=== PATIENT | female | born 1945 | race Caucasian/White ===

== ENCOUNTER 2020-02-01 11:27 | Outpatient (CLI) | payer MEDICARE, SELFPAY ==
[2020-02-01 11:42] LABS: Basophils Absolute Auto 0.04 K/mm3 (0.00-0.10); Basophils Percent Auto 0.8 % (0.0-1.0); Eosinophils Absolute Auto 0.21 K/mm3 (0.02-0.50); Eosinophils Percent Auto 4.2 % (1.0-6.0); Hematocrit 40.2 % (35.0-42.0); Hemoglobin 13.1 g/dL (11.7-13.8); Immature Granulocyte Absolute 0.02 K/mm3 (0.00-0.00); Immature Granulocyte Percent A 0.4 % (0.0-0.0); Lymphocytes Absolute Auto 1.35 K/mm3 (1.10-4.50); Lymphocytes Percent Auto 26.8 % (18.0-42.0); Mean Corpuscular HGB Conc 32.6 g/dL (32.0-36.0); Mean Corpuscular Hemoglobin 30.2 pg (27.0-31.0); Mean Corpuscular Volume 92.6 fL (78.0-102.0); Mean Platelet Volume 9.4 fl (9.2-11.8); Monocytes Absolute Auto 0.47 K/mm3 (0.10-0.90); Monocytes Percent Auto 9.3 % (2.0-11.0); Neutrophils Percent Auto 58.5 % (50.0-70.0); Platelet Count Result 236 K/mm3 (150-420); Red Blood Count 4.34 M/mm3 (4.20-5.40); Red Cell Distribution Width 12.7 % (11.6-14.4)
[2020-02-01 12:39] LABS: Alanine Aminotransferase 20 U/L (14-59); Albumin Level 3.7 g/dL (3.4-5.0); Alkaline Phosphatase 73 U/L (46-116); Anion Gap 13.2 mmol/L (7-16); Aspartate Amino Transferase 15 U/L (15-37); Bilirubin,Total 0.4 mg/dL (0.00-1.00); Blood Urea Nitrogen 23 mg/dL (7-18); Calcium 9.1 mg/dL (8.5-10.1); Carbon Dioxide 29 mmol/L (21-32); Chloride 106 mmol/L (98-108); Estimated Glomerular Filt Rate 53; Free T4 Free Thyroxine 0.72 ng/dL (0.76-1.46); Glucose 89 mg/dL (70-99); Osmolality Calculated 300 mOsm/kg (285-295); Potassium 4.2 mmol/L (3.5-5.1); Sodium 144 mmol/L (136-145); Total Protein 6.5 g/dL (6.4-8.2)
== END 2020-02-01 11:28 | disposition home or self-care (01) ==
LOC: CHSLAB 11:30
DX: E05.90 Thyrotoxicosis, unspecified without thyrotoxic crisis or storm (principal); E05.00 Thyrotoxicosis with diffuse goiter without thyrotoxic crisis or storm
CPT/HCPCS: 36415; 80053; 84439; 84443; 85025

== ENCOUNTER 2020-03-15 08:37 | Outpatient (CLI) | payer MEDICARE, SELFPAY ==
[2020-03-15 09:56] LABS: Cholesterol 258 mg/dL (0-200); Folic Acid 16.5 ng/mL (8.6->20); HDL Direct 66 mg/dL (40-60); LDL Cholesterol Calculated 183 mg/dL (<130); Magnesium 2.3 mg/dL (1.8-2.4); Triglycerides 44 mg/dL (0-150); Vitamin B12 681 pg/mL (193-986)
[2020-03-19 19:08] LABS: Vitamin D 25 Hydroxy 23 ng/mL (30-100)
== END 2020-03-15 08:38 | disposition home or self-care (01) ==
LOC: CHSLAB 08:39
PROVIDERS: PCP Family Medicine; Visit Provider Family Medicine
DX: R20.2 Paresthesia of skin (principal); E78.00 Pure hypercholesterolemia, unspecified; E55.9 Vitamin D deficiency, unspecified
CPT/HCPCS: 36415; 80061; 82306; 82607; 82746; 83735

== ENCOUNTER 2020-05-17 11:24 | Emergency (ER) | payer MEDICARE, BC, SELFPAY ==
[2020-05-17 11:45] VITALS: BP 144/89; PULSE 89; RESP 19; TEMP 36.6; O2SAT 96
--- NOTE | 2020-05-17 11:45 | ED.FALL ---
HPI - Fall General Chief Complaint: Dental/Oral Stated Complaint: Fell hit face on ground Source: patient Mode of arrival: ambulatory Limitations: no limitations History of Present Illness HPI Narrative: 75 y.o. stumbled on a sidewalk just prior to arrival in ED. She fell forward hitting her mouth and the right knee. She c/o a chipped tooth and being unable to close her mouth. She's able to walk without pain. She denies dizziness or lightheadedness. Denies headache, chest pain, neck, wrist, elbow, shoulder, hip pain. Related Data Home Medications Medication Instructions Recorded Confirmed No Home Medications 05/17/20 05/17/20 Allergies Allergy/AdvReac Type Severity Reaction Status Date / Time No Known Drug Allergies Allergy Unknown Verified 02/16/17 07:10 Review of Systems ENT: Denies epistaxis Cardiovascular: Cardiovascular: Denies chest pain Respiratory: Respiratory: Denies dyspnea Gastrointestinal: Gastrointestinal: Denies nausea and Denies vomiting Musculoskeletal: Musculoskeletal: Reports no additional musculoskeletal complaints Integumentary/Breasts: Skin/Breast: Reports system reviewed and no additional complaints, except as docu Neurologic: Denies vertigo, Denies dizziness and Denies syncope [facility] Past Medical History Medical History (Updated 05/17/20 @ 12:08 by Hernan Rene MD) Hypothyroidism Kidney malignancy 2016 dx. Kidney mass excised. No other tx. Sees oncology yearly. Family History Family History (Updated 09/19/13 @ 12:52 by DOCTOR UNKNOWN) Other Cerebrovascular accident Family history of anemia Family history of atrial fibrillation Family history of cardiovascular disease Family history of cataracts Family history of congestive heart failure Family history of coronary artery disease Family history of glaucoma Family history of hearing loss Family history of kidney disease Family history of malignant neoplasm of male breast Family history of osteoporosis Family history of seizure disorder Social History Social History Smoking status: Never smoker Alcohol intake: current Exam Const: General: alert Orientation/consciousness: patient oriented x3 Other: holding tissue to mouth, walked in. NAD. HENMT: Head: no hematomas and no lacerations Nose image: 1. 2. 3. area of superficial laceration. Wound edges do not seperate. Face and sinus: normal facial exam and no sinus tenderness Mouth: No lip normal Teeth and gingiva: abnormal dentition (R maxillary frontal incisor is shifted anterior,L incisor chipped) Other: Superficial lac of right lower external and right upper bucchal surfaces. Edges do not seperate. Minor right lip swelling. able to occlude teeth, the left max. incisor appears tilted anteriorly. The incisors are not loose. Eyes: Pupils: Equal, round and reactive pupils present Neck: Neck: normal visual inspection Other: No C spine tenderness Chest: Chest palpation & inspection: normal inspection of the chest Resp: Effort & Inspection: normal respiratory effort Cardio: Rate: regular rate Rhythm: regular rhythm Heart sounds: no murmurs GI: Other: flat, soft and nontender. Back/Spine/Pelvis: Back: no CVA tenderness Skin: Other: superficial abrasion right superior knee. Minimal tenderness. Patella is mobile. Extrem: General: normal to inspection Other: No UE/LE tenderness, swelling or bruising other than right supero-lateral patella. No Psych: Mental Status: mental status grossly normal Course Course Emergency Course: Arrengements made to see dentist after leaving Vital Signs Vital signs: Vital Signs Temperature 36.6 C 05/17/20 11:45 Pulse Rate 89 05/17/20 11:45 Respiratory Rate 05/17/20 11:45 Blood Pressure 144/89 H 05/17/20 11:45 Pulse Oximetry 96 05/17/20 11:45 Temperature 36.6 C 05/17/20 11:45 Pulse Rate 89 05/17/20 11:45 Respiratory Rate 05/17/20 11:45
[2020-05-17] MEDS: ACETAMINOPHEN 325 MG TABLET 650 MG PO (12:00)
== END 2020-05-17 12:10 | disposition home or self-care (01) ==
PROVIDERS: Emergency Provider Family Medicine
DX: S02.5XXA Fracture of tooth (traumatic), initial encounter for closed fracture (principal); W18.30XA Fall on same level, unspecified, initial encounter
CPT/HCPCS: 99282; A9270

== ENCOUNTER → 2020-05-24 08:27 | Outpatient (CLI) | payer MEDICARE, BC, SELFPAY ==
--- NOTE | ~2020-05-24 | MR_ITS ---
EXAMINATION: MR brain/brain stem wo con DATE: 05/24/2020 09:06 INDICATION: Headache. TECHNIQUE: Magnetic resonance imaging (MRI) of the brain and brainstem was performed without intraven ous contrast. Sequences included sagittal and axial T1-weighted FSE, axial diffusion-weighted FS EPI, axial T2*-weighted GRE, axial T2-weighted FLAIR Propeller, and axial T2-weighted Propeller. Apparent diffusion coefficient (ADC) maps were created. COMPARISON: Brain MRI 04/13/2016 FINDINGS: There is no intracranial hemorrhage, acute infarction, or abnormal intracranial mass lesion . There are areas of nonspecific increased T2-weighted signal intensity in the periventricular cerebr al white matter, which is within normal limits for the patient's age. The ventricles are normal in si ze. There is mild mucosal thickening in the paranasal sinuses. There are likely changes of ocular ada s replacement surgeries. The mastoid air cells are normal. IMPRESSION: 1. Normal aging brain. Reviewed, dictated and finalized at location A. IMPRESSION: 1. Normal aging brain.
== END ==
PROVIDERS: PCP Family Medicine; Visit Provider Family Medicine
DX: R51 Headache (principal); R26.9 Unspecified abnormalities of gait and mobility
CPT/HCPCS: 70551

== ENCOUNTER 2020-08-08 11:19 | Outpatient (CLI) | payer MEDICARE, BC, SELFPAY ==
--- NOTE | ~2020-08-08 | CT_ITS ---
EXAMINATION: CT abdomen pelvis wo/w con DATE: 08/08/2020 12:05 INDICATION: Malignant neoplasm of the left kidney. TECHNIQUE: Computed tomography (CT) of the abdomen and pelvis was performed without and with 100 mL O mnipaque-350 intravenous contrast. Automated exposure control and iterative reconstruction technique were employed. The dose-length product was 525.96 mGy-cm. COMPARISON: 07/19/2019, 07/07/2018 and 06/08/2017 FINDINGS: Mild scattered linear discoid atelectasis/scarring at the bilateral lung bases. Heart size is normal. No pericardial or pleural effusion. Small sliding-type hiatal hernia. Couple subcentimeter low-atten uation hepatic cysts. No interval change since 2017 in a likely benign 10 mm lesion in the right hepa tic lobe with slightly higher but still less than hepatic parenchymal attenuation and without definit zhanna enhancement on postcontrast images. Also unchanged is a lower density hepatic cyst in the left he patic lobe. Gallbladder, spleen, pancreas and bilateral adrenal glands are normal. Multiple bilateral low-attenuation nonenhancing renal cysts, the largest at the lower pole of the left kidney measuring 1.5 cm. Alongside this cyst at the lower pole of the left kidney are postoperative change of prior p artial nephrectomy with no evident new or enlarging soft tissue density to suggest residual or recurr ent disease. Moderate scattered colonic diverticulosis with descending and sigmoid colon predominance without adjacent inflammatory change to suggest diverticulitis. No bowel obstruction. The appendix i s not visualized. No pericecal inflammatory change to suggest acute appendicitis. Bladder is normal. The uterus is not identified and has likely been surgically resected. No pathologically enlarged abd ominal or pelvic lymphadenopathy. Mild lumbar spondylosis. No suspicious lytic or blastic bone lesion s. IMPRESSION: 1. Partial nephrectomy the lower pole of the left kidney with no evident residual, recurrent or metas tatic disease. 2. Small sliding-type hiatal hernia. 3. Diverticulosis. Reviewed, dictated and finalized at location A. 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 Partial nephrectomy the lower pole of the left kidney with no evident residu al, recurrent or metastatic disease. 2. Small sliding-type hiatal hernia. 3. Diverticulosis.
--- NOTE | ~2020-08-08 | XR_ITS ---
EXAMINATION: XR chest 2V EXAM DATE: 08/08/2020 11:50 INDICATION: Follow-up malignant neoplasm of left kidney, 3-4 years ago. TECHNIQUE: Frontal and lateral projections of the chest obtained and reviewed. Comparison is made to prior examination from 07/19/2019. FINDINGS: Upper lobe scarring. Moderate hyperinflation. The lungs are otherwise clear. There are no pleural effusions. The cardiomediastinal silhouette is within normal limits. There is no pneumotho rax suspected. The bones and soft tissues are unremarkable. There is no significant interval change . IMPRESSION: No acute cardiopulmonary findings. Reviewed, dictated and finalized at location B. [employer]LIST
[2020-08-08 11:58] LABS: Estimated Glomerular Filt Rate 40
== END 2020-08-08 11:20 | disposition home or self-care (01) ==
PROVIDERS: PCP Family Medicine; Visit Provider Urology
DX: C64.2 Malignant neoplasm of left kidney, except renal pelvis (principal); Z90.5 Acquired absence of kidney; K44.9 Diaphragmatic hernia without obstruction or gangrene; K57.90 Diverticulosis of intestine, part unspecified, without perforation or abscess without bleeding
CPT/HCPCS: 71046; 74178; Q9967

== ENCOUNTER 2020-12-20 08:52 | Outpatient (CLI) | payer MEDICARE, SELFPAY ==
[2020-12-20 09:12] LABS: Basophils Absolute Auto 0.05 K/mm3 (0.00-0.10); Eosinophils Absolute Auto 0.22 K/mm3 (0.02-0.50); Eosinophils Percent Auto 4.4 % (1.0-6.0); Hemoglobin 13.5 g/dL (11.7-13.8); Immature Granulocyte Absolute 0.01 K/mm3 (0.00-0.00); Immature Granulocyte Percent A 0.2 % (0.0-0.0); Lymphocytes Absolute Auto 1.65 K/mm3 (1.10-4.50); Lymphocytes Percent Auto 32.9 % (18.0-42.0); Mean Corpuscular HGB Conc 32.9 g/dL (32.0-36.0); Mean Corpuscular Hemoglobin 30.6 pg (27.0-31.0); Mean Platelet Volume 9.4 fl (9.2-11.8); Monocytes Absolute Auto 0.42 K/mm3 (0.10-0.90); Monocytes Percent Auto 8.4 % (2.0-11.0); Neutrophils Absolute Auto 2.7 K/mm3 (1.7-7.2); Neutrophils Percent Auto 53.1 % (50.0-70.0); Platelet Count Result 241 K/mm3 (150-420); Red Blood Count 4.41 M/mm3 (4.20-5.40); Red Cell Distribution Width 12.4 % (11.6-14.4)
[2020-12-20 10:10] LABS: Alanine Aminotransferase 21 U/L (14-59); Albumin Level 3.7 g/dL (3.4-5.0); Alkaline Phosphatase 74 U/L (46-116); Anion Gap 8 mmol/L (8-16); Aspartate Amino Transferase 11 U/L (15-37); Bilirubin,Total 0.5 mg/dL (0.00-1.00); Blood Urea Nitrogen 27 mg/dL (7-18); Carbon Dioxide 31 mmol/L (21-32); Chloride 105 mmol/L (98-108); Cholesterol 279 mg/dL (0-200); Estimated Glomerular Filt Rate 42; Free T3 2.18 pg/mL (2.18-3.98); Free T4 Free Thyroxine 0.77 ng/dL (0.76-1.46); Glucose 90 mg/dL (70-99); HDL Direct 65 mg/dL (40-60); LDL Cholesterol Calculated 199 mg/dL (<130); Osmolality Calculated 303 mOsm/kg (285-295); Potassium 4.1 mmol/L (3.5-5.1); Sodium 144 mmol/L (136-145); Total Protein 6.7 g/dL (6.4-8.2); Triglycerides 77 mg/dL (0-150)
[2020-12-20 11:15] LABS: Add Urine Microscopic? YES; Appearance Urine Clear (Clear); Bilirubin Urine Negative (Negative); Blood Urine Negative (Negative); Color Urine Yellow (Yellow); Glucose Urine UA Negative (Negative); Ketones Urine Negative (Negative); Leukocyte Esterase Ur Trace (Negative); Nitrate Urine Negative (Negative); Protein Urine Negative (Negative); Specific Grav Ur 1.025 (1.010-1.020); Urobilinogen Urine 0.2 mg/dL (0.2-1.0)
[2020-12-20 11:35] LABS: Squamous Epithelial Cell Urine Few /hpf (Few); WBC Urine 0-3 /hpf (0-3)
[2020-12-23 03:46] LABS: Vitamin D 25 Hydroxy 46 ng/mL (30-100)
== END 2020-12-20 08:53 | disposition home or self-care (01) ==
LOC: CHSLAB 08:54
PROVIDERS: PCP Internal Medicine; Visit Provider Internal Medicine
DX: E03.4 Atrophy of thyroid (acquired) (principal); M81.0 Age-related osteoporosis without current pathological fracture; E78.2 Mixed hyperlipidemia
CPT/HCPCS: 36415; 80053; 80061; 81001; 82306; 84439; 84443; 84481; 85025

== ENCOUNTER → 2020-12-21 11:13 | Outpatient (CLI) | payer MEDICARE, BC, SELFPAY ==
--- NOTE | ~2020-12-21 | MM_ITS ---
EXAMINATION: MM screening kaye BI w julio HISTORY: Screening mammogram, family history of breast cancer in her mother. TECHNIQUE: Craniocaudal and mediolateral oblique 3-D tomosynthesis images were obtained and synthetic 2-D images were generated. CAD analysis was submitted and interpreted. COMPARISON: 04/27/2018, 03/10/2017 BREAST PARENCHYMAL COMPOSITION: There are scattered areas of fibroglandular density. FINDINGS: There is no evidence of suspicious mass, calcification, or architectural distortion to sugg est malignancy in either breast. There has been no suspicious interval change. IMPRESSION: 1. No mammographic evidence of malignancy. 2. Recommend routine screening mammography in one year. BI-RADS Category 1: Negative Reviewed, dictated and finalized at location A.
== END ==
PROVIDERS: PCP Internal Medicine; Visit Provider Internal Medicine
DX: Z12.31 Encounter for screening mammogram for malignant neoplasm of breast (principal)
CPT/HCPCS: 77063; 77067

== ENCOUNTER 2021-03-10 11:04 | Outpatient (CLI) | payer MEDICARE, SELFPAY ==
[2021-03-10 11:16] LABS: Appearance Urine Clear (Clear); Bilirubin Urine Negative (Negative); Glucose Urine UA Negative (Negative); Ketones Urine Negative (Negative); Leukocyte Esterase Ur 1+ (Negative); Nitrate Urine Negative (Negative); Protein Urine Negative (Negative); Urobilinogen Urine 0.2 mg/dL (0.2-1.0)
[2021-03-10 11:21] LABS: Add Urine Microscopic? YES; Blood Urine Trace-Intact (Negative); Color Urine Light Yellow (Yellow); Squamous Epithelial Cell Urine Few /hpf (Few); WBC Urine 0-3 /hpf (0-3)
[2021-03-10 11:22] LABS: Bacteria Urine Trace /hpf
[2021-03-10 13:59] LABS: Anion Gap 10 mmol/L (8-16); Blood Urea Nitrogen 25 mg/dL (7-18); Carbon Dioxide 28 mmol/L (21-32); Chloride 104 mmol/L (98-108); Cholesterol 292 mg/dL (0-200); Creatine Kinase 45 U/L (26-192); Estimated Glomerular Filt Rate 46; Free T3 2.27 pg/mL (2.18-3.98); Free T4 Free Thyroxine 0.78 ng/dL (0.76-1.46); Glucose 86 mg/dL (70-99); HDL Direct 68 mg/dL (40-60); LDL Cholesterol Calculated 213 mg/dL (<130); Osmolality Calculated 297 mOsm/kg (285-295); Potassium 4.3 mmol/L (3.5-5.1); Sodium 142 mmol/L (136-145); Thyroid Stimulating Hormone 17.38 uIU/mL (0.36-3.74); Triglycerides 57 mg/dL (0-150)
== END 2021-03-10 11:05 | disposition home or self-care (01) ==
LOC: CHSLAB 11:06
PROVIDERS: PCP Internal Medicine; Visit Provider Internal Medicine
DX: N18.2 Chronic kidney disease, stage 2 (mild) (principal); E78.2 Mixed hyperlipidemia; E89.0 Postprocedural hypothyroidism
CPT/HCPCS: 36415; 80048; 80061; 81001; 82550; 84439; 84443; 84481

== ENCOUNTER 2021-05-04 08:50 | Emergency (ER) | payer MEDICARE, BC, SELFPAY ==
[2021-05-04 09:11] VITALS: BP 151/70; PULSE 72; RESP 20; TEMP 37; O2SAT 100
--- NOTE | 2021-05-04 09:19 | ED.DIZZY ---
HPI - Dizziness General Chief Complaint: Dizziness Stated Complaint: dizzy Source: patient, family and RN notes reviewed Mode of arrival: ambulatory Limitations: no limitations History of Present Illness MD elicited complaint: lightheadedness Onset (ago): day(s) (3) Timing: sudden onset Severity: moderate Description: lightheadedness Context: change in body position History of similar symptoms: No Exacerbating factors: movement/ambulation Relieving factors: rehydration Associated symptoms: nausea Related Data Allergies Allergy/AdvReac Type Severity Reaction Status Date / Time levothyroxine Allergy Unknown Verified 05/04/21 10:50 levothyroxine sodium Allergy Unknown Verified 05/04/21 10:50 [From Synthroid] thyroid, pork Allergy Unknown Verified 05/04/21 10:50 [From [place] Thyroid] Review of Systems Review of Systems: All systems reviewed & are unremarkable except as noted in HPI and below Constitutional: Constitutional: Denies chills and Denies fever(s) Cardiovascular: Cardiovascular: Denies chest pain Respiratory: Respiratory: Denies cough and Denies dyspnea Gastrointestinal: Gastrointestinal: Denies diarrhea and Denies vomiting Genitourinary: Genitourinary: Denies dysuria PMFSH Past Medical History Medical History (Updated 05/04/21 @ 11:00 by Zeeshan Armstrong MD) Hypothyroidism Surgical History Surgical History (Updated 05/04/21 @ 09:34 by Zeeshan Armstrong MD) Kidney malignancy 2016 dx. Kidney mass excised. No other tx. Sees oncology yearly. Family History Family History Other Cerebrovascular accident Family history of anemia Family history of atrial fibrillation Family history of cardiovascular disease Family history of cataracts Family history of congestive heart failure Family history of coronary artery disease Family history of glaucoma Family history of hearing loss Family history of kidney disease Family history of malignant neoplasm of male breast Family history of osteoporosis Family history of seizure disorder Social History Social History Smoking status: Never smoker Alcohol intake: current Gender identity (if verbalized by the patient): Female Exam Const: General: healthy appearing and no acute distress Nutritional Appearance: well nourished Orientation/consciousness: patient oriented x3 HENMT: Head: normal to inspection Ears: external ear abnormal Face and sinus: normal facial exam Eyes: Conjunctivae: conjunctivae normal Pupils: Equal, round and reactive pupils present EOM: EOMs intact bilaterally Neck: Neck: normal visual inspection Resp: Effort & Inspection: normal respiratory effort Auscultation: clear to auscultation bilaterally Cardio: Rate: regular rate Rhythm: regular rhythm GI: Auscultation: normal bowel sounds Back/Spine/Pelvis: Cervical Spine: cervical ROM normal Thoracic/Lumbar Spine: thoraco-lumbar ROM normal Skin: General skin exam: normal color Neuro: General: patient oriented x3, moves all extremities and no focal motor deficits Speech: normal speech Gait exam (Neuro): Normal gait present Psych: Appearance: grossly normal and well kempt Mental Status: mental status grossly normal Affect: normal affect Attitude: cooperative Thought content: Yes Normal thought content present Course Vital Signs Vital signs: Vital Signs Temperature 37.0 C 05/04/21 09:11 Pulse Rate 72 05/04/21 09:11 Respiratory Rate 20 05/04/21 09:11 Blood Pressure 151/70 H 05/04/21 09:11 Pulse Oximetry 100 05/04/21 09:11 Temperature 36.7 C 05/04/21 11:59 Pulse Rate 61 05/04/21 11:59 Respiratory Rate 20 05/04/21 11:59 Blood Pressure 141/64 H 05/04/21 11:59 Pulse Oximetry 100 05/04/21 11:59 MDM - Dizziness Lab Data Attestation: I reviewed the patient's lab results. Result diagrams: 05/04/21
[2021-05-04 09:45] VITALS: BP 133/71; PULSE 60; RESP 20; O2SAT 100
[2021-05-04 10:00] VITALS: BP 144/63; PULSE 60; RESP 20; O2SAT 100
[2021-05-04 10:12] LABS: Basophils Absolute Auto 0.04 K/mm3 (0.00-0.10); Basophils Percent Auto 0.8 % (0.0-1.0); Eosinophils Absolute Auto 0.11 K/mm3 (0.02-0.50); Eosinophils Percent Auto 2.2 % (1.0-6.0); Hematocrit 38.2 % (35.0-42.0); Hemoglobin 12.8 g/dL (11.7-13.8); Immature Granulocyte Absolute 0.01 K/mm3 (0.00-0.00); Immature Granulocyte Percent A 0.2 % (0.0-0.0); Lymphocytes Absolute Auto 1.18 K/mm3 (1.10-4.50); Lymphocytes Percent Auto 23.5 % (18.0-42.0); Mean Corpuscular HGB Conc 33.5 g/dL (32.0-36.0); Mean Corpuscular Hemoglobin 31.1 pg (27.0-31.0); Mean Corpuscular Volume 92.9 fL (78.0-102.0); Mean Platelet Volume 9.3 fl (9.2-11.8); Neutrophils Absolute Auto 3.3 K/mm3 (1.7-7.2); Neutrophils Percent Auto 65.3 % (50.0-70.0); Platelet Count Result 228 K/mm3 (150-420); Red Blood Count 4.11 M/mm3 (4.20-5.40); Red Cell Distribution Width 12.7 % (11.6-14.4)
[2021-05-04 10:27] LABS: Alanine Aminotransferase 22 U/L (14-59); Albumin Level 3.6 g/dL (3.4-5.0); Alkaline Phosphatase 67 U/L (46-116); Anion Gap 12 mmol/L (8-16); Aspartate Amino Transferase 12 U/L (15-37); Bilirubin,Total 0.4 mg/dL (0.00-1.00); Blood Urea Nitrogen 27 mg/dL (7-18); Carbon Dioxide 26 mmol/L (21-32); Chloride 107 mmol/L (98-108); Estimated CRCL calculation 32 ml/min; Estimated Glomerular Filt Rate 43; Glucose 89 mg/dL (70-99); Magnesium 2.2 mg/dL (1.8-2.4); Osmolality Calculated 304 mOsm/kg (285-295); Potassium 4.3 mmol/L (3.5-5.1); Sodium 145 mmol/L (136-145); Total Protein 6.6 g/dL (6.4-8.2)
[2021-05-04 11:00] VITALS: BP 145/65; PULSE 63; RESP 20; O2SAT 100
[2021-05-04] MEDS: MECLIZINE HCL 25 MG TABLET PO (11:00)
[2021-05-04 11:59] VITALS: BP 141/64; PULSE 61; RESP 20; TEMP 36.7; O2SAT 100
== END 2021-05-04 12:01 | disposition home or self-care (01) ==
PROVIDERS: Emergency Provider Emergency Medicine; PCP Internal Medicine
DX: H81.10 Benign paroxysmal vertigo, unspecified ear (principal)
CPT/HCPCS: 36415; 80053; 83735; 85025; 99283; A9270

== ENCOUNTER 2021-06-02 13:32 | Outpatient (CLI) | payer MEDICARE, SELFPAY ==
[2021-06-02 13:45] LABS: Add Urine Microscopic? YES; Appearance Urine Clear (Clear); Bilirubin Urine Negative (Negative); Blood Urine Negative (Negative); Color Urine Light Yellow (Yellow); Glucose Urine UA Negative (Negative); Ketones Urine Negative (Negative); Leukocyte Esterase Ur Trace (Negative); Nitrate Urine Negative (Negative); Protein Urine Negative (Negative); Specific Grav Ur <= 1.005 (1.010-1.020); Urobilinogen Urine 0.2 mg/dL (0.2-1.0)
[2021-06-02 13:50] LABS: Bacteria Urine Trace /hpf; RBC Urine None seen /hpf (0-2); Renal Epithelial Cells Urine Rare /hpf; Squamous Epithelial Cell Urine Rare /hpf (Few); WBC Urine None seen /hpf (0-3)
[2021-06-02 14:21] LABS: Anion Gap 7 mmol/L (8-16); Blood Urea Nitrogen 23 mg/dL (7-18); Calcium 9.3 mg/dL (8.5-10.1); Carbon Dioxide 31 mmol/L (21-32); Chloride 105 mmol/L (98-108); Estimated Glomerular Filt Rate 46; Free T3 2.06 pg/mL (2.18-3.98); Free T4 Free Thyroxine 0.78 ng/dL (0.76-1.46); Glucose 87 mg/dL (70-99); Osmolality Calculated 298 mOsm/kg (285-295); Potassium 4.4 mmol/L (3.5-5.1); Sodium 143 mmol/L (136-145); Thyroid Stimulating Hormone 12.45 uIU/mL (0.36-3.74)
== END 2021-06-02 13:33 | disposition home or self-care (01) ==
LOC: CHSLAB 13:34
PROVIDERS: PCP Internal Medicine; Visit Provider Internal Medicine
DX: N18.2 Chronic kidney disease, stage 2 (mild) (principal); E89.0 Postprocedural hypothyroidism
CPT/HCPCS: 36415; 80048; 81001; 84439; 84443; 84481

== ENCOUNTER 2022-02-07 10:38 | Outpatient (CLI) | payer MEDICARE, BC, SELFPAY ==
--- NOTE | ~2022-02-07 | XR_ITS ---
EXAM: XR_[id number]_CR HISTORY: chronic bilat neck pain, worse on RT than LT, NKI COMPARISON: None available FINDINGS: Craniocervical association and atlantoaxial joint are normally aligned. Mild degenerative change at C1-C2. No prevertebral soft tissue swelling. The vertebral body heights are maintained. Mil d degenerative disc disease at C4-5 and C5-6. Normal vertebral body alignment. Minimal facet arthropa thy, otherwise normal facets and posterior elements. IMPRESSION: No acute fracture or traumatic malalignment of the cervical spine. Chronic findings detailed above. Reviewed, dictated and finalized at location K. IMPRESSION: No acute fracture or traumatic malalignment of the cervical spine. Chronic find ings detailed above.
--- NOTE | ~2022-02-07 | XR_ITS ---
EXAM: XR heel RT min 2V HISTORY: chronic right heel pain, NKI COMPARISON: None available FINDINGS: Osteopenia. No fracture or dislocation. No lytic or blastic lesion. Joint spaces maintaine d. Achilles and plantar enthesopathy. No erosion or periosteal change. Soft tissues within normal levy its. IMPRESSION: No acute fracture or dislocation. Chronic findings detailed above. Reviewed, dictated and finalized at location K.
[2022-02-07 11:08] LABS: Basophils Absolute Auto 0.04 K/mm3 (0.00-0.10); Basophils Percent Auto 0.8 % (0.0-1.0); Eosinophils Absolute Auto 0.21 K/mm3 (0.02-0.50); Eosinophils Percent Auto 4.3 % (1.0-6.0); Hematocrit 40.8 % (35.0-42.0); Hemoglobin 13.4 g/dL (11.7-13.8); Immature Granulocyte Absolute 0.01 K/mm3 (0.00-0.00); Immature Granulocyte Percent A 0.2 % (0.0-0.0); Lymphocytes Absolute Auto 1.39 K/mm3 (1.10-4.50); Lymphocytes Percent Auto 28.5 % (18.0-42.0); Mean Corpuscular HGB Conc 32.8 g/dL (32.0-36.0); Mean Corpuscular Hemoglobin 30.7 pg (27.0-31.0); Mean Corpuscular Volume 93.6 fL (78.0-102.0); Mean Platelet Volume 9.7 fl (9.2-11.8); Monocytes Absolute Auto 0.38 K/mm3 (0.10-0.90); Monocytes Percent Auto 7.8 % (2.0-11.0); Neutrophils Absolute Auto 2.8 K/mm3 (1.7-7.2); Neutrophils Percent Auto 58.4 % (50.0-70.0); Platelet Count Result 263 K/mm3 (150-420); Red Blood Count 4.36 M/mm3 (4.20-5.40); White Blood Count 4.9 K/mm3 (4.8-10.8)
[2022-02-07 11:50] LABS: Alanine Aminotransferase 19 U/L (14-59); Albumin Level 3.7 g/dL (3.4-5.0); Alkaline Phosphatase 80 U/L (46-116); Anion Gap 5 mmol/L (8-16); Aspartate Amino Transferase 13 U/L (15-37); Bilirubin,Total 0.4 mg/dL (0.00-1.00); Blood Urea Nitrogen 25 mg/dL (7-18); Calcium 8.9 mg/dL (8.5-10.1); Carbon Dioxide 30 mmol/L (21-32); Chloride 106 mmol/L (98-108); Cholesterol 285 mg/dL (0-200); Estimated Glomerular Filt Rate 45; Free T3 2.42 pg/mL (2.18-3.98); Free T4 Free Thyroxine 0.74 ng/dL (0.76-1.46); Glucose 97 mg/dL (70-99); HDL Direct 77 mg/dL (40-60); LDL Cholesterol Calculated 198 mg/dL (<130); Osmolality Calculated 296 mOsm/kg (285-295); Sodium 141 mmol/L (136-145); Thyroid Stimulating Hormone 31.83 uIU/mL (0.36-3.74); Total Protein 7.2 g/dL (6.4-8.2); Triglycerides 49 mg/dL (0-150); Vitamin B12 1507 pg/mL (193-986)
[2022-02-07 11:56] LABS: Erythrocyte Sedimentation Rate 15 mm/hr (0-20)
[2022-02-07 13:08] LABS: Appearance Urine Clear (Clear); Bilirubin Urine Negative (Negative); Color Urine Yellow (Yellow); Glucose Urine UA Negative (Negative); Ketones Urine Negative (Negative); Leukocyte Esterase Ur Negative (Negative); Nitrate Urine Negative (Negative); Protein Urine Negative (Negative); Urobilinogen Urine 0.2 mg/dL (0.2-1.0); pH Urine 5.5 (5.0-8.0)
[2022-02-07 13:57] LABS: Add Urine Microscopic? YES; Bacteria Urine Trace /hpf; Blood Urine Trace-Intact (Negative); RBC Urine 0-2 /hpf (0-2); Squamous Epithelial Cell Urine Rare /hpf (Few); WBC Urine None seen /hpf (0-3)
[2022-02-11 15:32] LABS: Vitamin D 25 Hydroxy 63 ng/mL (30-100)
[2022-02-12 17:10] LABS: Anti Nuclear Antibody Titer 1:40 (Negative)
== END 2022-02-07 10:39 | disposition home or self-care (01) ==
PROVIDERS: PCP Internal Medicine; Visit Provider Internal Medicine
DX: E55.9 Vitamin D deficiency, unspecified (principal); E78.00 Pure hypercholesterolemia, unspecified; E89.0 Postprocedural hypothyroidism; M81.0 Age-related osteoporosis without current pathological fracture; G62.9 Polyneuropathy, unspecified; M54.2 Cervicalgia; M79.671 Pain in right foot
CPT/HCPCS: 36415; 72040; 73650; 80053; 80061; 81001; 82306; 82607; 84439; 84443; 84481; 85025; 85652; 86038; 86039

== ENCOUNTER 2022-02-14 07:39 | Outpatient (CLI) | payer MEDICARE, BC, SELFPAY ==
--- NOTE | ~2022-02-14 | MR_ITS ---
EXAMINATION: MR cervical spine wo con DATE: 02/14/2022 09:07 INDICATION: Chronic neck pain. TECHNIQUE: Magnetic resonance imaging (MRI) of the cervical spine was performed without intravenous c ontrast. Sequences included sagittal T2-weighted FSE, sagittal T2-weighted FS FSE, sagittal T1-weight ed FSE, axial MERGE, and axial T2-weighted FSE. COMPARISON: None FINDINGS: Craniocervical association and atlantoaxial joint are intact with moderate degenerative maine nge. Normal alignment. Vertebral body heights are maintained. The cord signal is normal. The followin g disc levels are specifically discussed: C2-C3: The disc does not extend beyond the endplate margin. There is mild left and no right uncoverte bral joint osteoarthritis. There is no facet joint osteoarthritis. There is no neural foraminal steno sis. There is no central canal stenosis. C3-C4: The disc does not extend beyond the endplate margin. There is mild bilateral uncovertebral chris nt osteoarthritis. There is mild bilateral facet joint osteoarthritis. There is no neural foraminal s tenosis. There is no central canal stenosis. C4-C5: Mild diffuse bulge. There is moderate left and no right uncovertebral joint osteoarthritis. Th ere is mild bilateral facet joint osteoarthritis. There is mild left neural foraminal stenosis. There is no central canal stenosis. C5-C6: Mild diffuse bulge There is moderate left and mild right uncovertebral joint osteoarthritis. T here is moderate bilateral facet joint osteoarthritis. There is moderate left neural foraminal stenos is. There is no central canal stenosis. C6-C7: Mild diffuse bulge There is mild bilateral uncovertebral joint osteoarthritis. There is mild f acet joint osteoarthritis. There is no neural foraminal stenosis. There is no central canal stenosis. C7-T1: The disc does not extend beyond the endplate margin. There is moderate right and mild left unc overtebral joint osteoarthritis. There is mild facet joint osteoarthritis. There is moderate right an d mild left neural foraminal stenosis. There is no central canal stenosis. IMPRESSION: 1. Multilevel mild-moderate degenerative disc, uncovertebral joint, and facet changes as described ab ove. 2. No severe central canal or neural foraminal narrowing. Reviewed, dictated and finalized at location K. IMPRESSION: 1. Multilevel mild-moderate degenerative disc, uncovertebral joint, and facet c hanges as described above. 2. No severe central canal or neural foraminal narrowing.
== END 2022-02-14 07:40 | disposition home or self-care (01) ==
LOC: CHSIMG 07:40
PROVIDERS: PCP Internal Medicine; Visit Provider Internal Medicine
DX: M54.2 Cervicalgia (principal)
CPT/HCPCS: 72141

== ENCOUNTER 2022-02-17 08:56 | Outpatient (RCR) | payer MEDICARE, BC, SELFPAY ==
--- NOTE | 2022-02-17 09:34 | PTOPEVAL ---
Thank you for referring Nadiya Carrion to [facility] The patient is scheduled to be seen for therapy? __2__x/week for 10 visits. Please review, sign, date and return this plan of care SUSIE. I agree with and certify that the following plan of care is medically necessary. Referring Physician Date Admitting Provider: Attending Provider: Yulisa Kinsey MD Referring Provider: *PT Outpatient Evaluation Start: 02/17/22 09:06 Freq: Status: Active Protocol: Document 02/17/22 09:06 JUSTYN (Rec: 02/17/22 09:34 JUSTYN [id number]) Therapy Assessment Status Assessment Status Assessment Status Evaluation Outpatient Past Medical History Genitourinary History Hx Other Genitourinary Disorders Yes: SURGERY TO REMOVE MASS Endocrine History Hx Hypothyroidism Yes: THYROID SURGERY HEENT History Hx Tonsillectomy Yes Evaluation Information Problem Diagnosis cervicalgia Onset 01/02/22 Subjective Information Pt. reports that she has had Query Text:As Reported By Patient/ on/off neck pain for many Family years. She reports that it began to wrosen in January. She describes pain with reading, sitting over a sewing machine and long distance care rides. She describes pain down the neck and across the shoulders and occassional sharp pain under the right shoulder blade . She does get occasssional tingling in the hands. She reports that her goal is to decrease her pain. Prior Level of Function Activity Level (Last 3 Months) Occupation retired Hand Dominance Right Activity of Daily Living Ability Independent Indoor/Home Mobility Independent Community Mobility Independent Stairs Ability Independent Functional Cognition (Planning, Shopping Independent , Taking Medications) Cooking Yes Cleaning Yes Laundry Yes Shopping Yes Driving Yes Pain Assessment Timing of Pain Assessment Timing of Pain Assessment Pre-Treatment Pain Scale Pain Scale Used Numeric (1 - 10) Self Report Pain Assessment Neck Reported Pain Level 4 Lowest Pain Intensity 4 Greatest Pain Intensity 10 Pain Aggravating Factors Sitting Pain Score Pain Score 4: Self Report
== END 2022-03-19 17:42 | disposition home or self-care (01) ==
LOC: CHSPT 08:56
PROVIDERS: PCP Internal Medicine; Visit Provider Internal Medicine
DX: M54.2 Cervicalgia (principal)
CPT/HCPCS: 97012; 97014; 97110; 97140; 97161; G0283

== ENCOUNTER 2024-05-10 14:22 | Outpatient (RCR) | payer MEDICARE, BC, SELFPAY ==
--- NOTE | 2024-05-10 14:51 | PTOPEVAL1 ---
Assessment and note entered by Pedro Méndez Evaluation Information Assessment Status Evaluation ICD-10 Condition Codes (PT) Cervicalgia M54.2 Onset 05/09/24 Subjective Information Pt. reports she has had on/off neck pain since the 's. She reports that pain is mostly located on the right side, but will occasionally go into the left. She reports that pain is most notable after getting up in the morning. She reports that pain will also increase with sitting and reading and watching TV. Pt. reports that driving will increase her pain. She states that she will sometimes get headaches, but they go away without medication. She reports that she can develop numbness and tingling into the right hand on occasion. She reports that pain will cause her to wake at night. She reports that cleaning the home increases her pain and she has more trouble maintaining her home due to neck pain. She reports she had therapy 2 years, which helped to reduce her pain. She reports that her goal is to decrease her pain. Reported Pain Level Pain Score 8: Self Report Assessment PT Clinical Summary Pt. is a 79 year old female who enters the clinic with a diagnosis of neck pain. She presents with impaired postural awareness, impaired c-spine mobility, proximal u.e. weakness and pain on this date. Continued skilled PT is indicated in order to improve these areas to allow the pt. to be able to complete all IADL's with improved comfort and efficiency. Plan of Care Interventions Electrical Stimulation,Hot Pack/Cold Pack,Manual Therapy,Mechanical Traction,Neuro Re-education, Patient/Caregiver Educati,Therapeutic Activities, Therapeutic Exercise PT Services Indicated Yes Treatment Frequency and 2x/week x 10 visits Duration These treatments will address the objective and functional deficits as defined above. The patient will be advanced safely and appropriately in order for the patient to progress towards his/her prior level of function. Additional exercises will be introduced and as well as a comprehensive home exercise program upon discharge, if needed, ?to ensure carryover of functional gains achieved in the clinic. This treatment plan has been reviewed and agreement upon by the patient.
--- NOTE | 2024-05-10 15:18 | OPREHPOC ---
Outpatient Therapy Plan of Care This is a Multidisciplinary Plan of Care that may contain components documented by all disciplines (PT, OT, and ST.) PT Problem 1 PT Problem #1 Knowledge Deficit PT Goal 1 Goal Pt. will be independent with a HEP addressing c- spine ROM and posture Target Visit 2 PT Problem 2 PT Problem #2 Pain PT Goal 1 Goal Pt. will reduce pain to 4/10 at worst with performance of all IADL's Target Visit 10 PT Problem 3 PT Problem #3 Impaired Functional Mobil PT Goal 1 Goal pt. will present with 0% limitation on the NDI indicating significant functional improvement. Target Visit 10 PT Problem 4 PT Problem #4 Impaired Range of Motion PT Goal 1 Goal Pt. will demonstrate 80-85 degrees bilateral c- spine rotation active ROM to improve visual field with tasks such has driving. Target Visit 10 PT Problem 5 PT Problem #5 Impaired Strength PT Goal 1 Goal Improve proximal u.e. strength to 5/5 in all groups to allow for improved stability at the neck and shoulders. Target Visit 10
--- NOTE | 2024-05-29 12:45 | PCPTNOTE ---
Patient called & cancelled scheduled appointment this date.
== END 2024-06-12 11:02 | disposition home or self-care (01) ==
LOC: CHSPT 14:22
PROVIDERS: PCP Internal Medicine; Visit Provider Internal Medicine
DX: M54.12 Radiculopathy, cervical region (principal)
CPT/HCPCS: 97012; 97014; 97110; 97140; 97161; G0283

== ENCOUNTER 2024-06-20 12:01 | Outpatient (CLI) | payer MEDICARE, SELFPAY ==
[2024-06-20 15:06] LABS: Alanine Aminotransferase 20 U/L (14-59); Albumin Level 3.7 g/dL (3.4-5.0); Alkaline Phosphatase 76 U/L (46-116); Anion Gap 6 mmol/L (4-12); Aspartate Amino Transferase 12 U/L (15-37); Bilirubin,Total 0.5 mg/dL (0.00-1.00); Blood Urea Nitrogen 25 mg/dL (7-18); Calcium 9.2 mg/dL (8.5-10.1); Carbon Dioxide 32 mmol/L (21-32); Chloride 103 mmol/L (98-108); Estimated Glomerular Filt Rate 53; Free T3 2.15 pg/mL (2.18-3.98); Free T4 Free Thyroxine 0.81 ng/dL (0.76-1.46); Glucose 83 mg/dL (70-99); Osmolality Calculated 295 mOsm/kg (285-295); Potassium 4.8 mmol/L (3.5-5.1); Sodium 141 mmol/L (136-145); Thyroid Stimulating Hormone 1.92 uIU/mL (0.36-3.74); Total Protein 6.9 g/dL (6.4-8.2)
== END 2024-06-20 12:02 | disposition home or self-care (01) ==
LOC: CHSLAB 12:03
PROVIDERS: PCP Internal Medicine; Visit Provider Internal Medicine
DX: H53.2 Diplopia (principal); E89.0 Postprocedural hypothyroidism; R42 Dizziness and giddiness
CPT/HCPCS: 36415; 80053; 84439; 84443; 84481

== ENCOUNTER 2024-07-08 09:38 | Outpatient (CLI) | payer MEDICARE, BC, SELFPAY ==
--- NOTE | ~2024-07-08 | MR_ITS ---
EXAMINATION: MR orbits face neck wo/w con DATE: 07/08/2024 11:31 INDICATION: Diplopia. Thyrotoxicosis with diffuse goiter. TECHNIQUE: Magnetic resonance imaging (MRI) of the orbits was performed without and with 10 mL MultiH ance intravenous contrast. COMPARISON: Brain MRI 05/24/2020 FINDINGS: Left inferior rectus muscle is enlarged with increased T2-weighted signal intensity and lit tle if any abnormal contrast enhancement. Specificity is decreased by susceptibility artifact from th e sinuses. There is no abnormal mass. There are likely changes of ocular lens replacement surgeries. The optic nerves and optic chiasm are normal. IMPRESSION: 1. Enlarged left inferior rectus muscle. The differential diagnosis includes thyroid ophthalmopathy a nd idiopathic orbital inflammation. Reviewed, dictated and finalized at location A. IMPRESSION: 1. Enlarged left inferior rectus muscle. The differential diagnosis includes th yroid ophthalmopathy and idiopathic orbital inflammation.
--- NOTE | ~2024-07-08 | MR_ITS ---
MRI of the brain Clinical History: Double vision Technique: Axial and sagittal T1-weighted images were acquired. These were followed by axial T2-weigh dale, diffusion weighted, gradient, and FLAIR images. Following intravenous administration of 10 cc Mu ltiHance gadolinium, T1-weighted fat-sat imaging was performed in the axial and coronal planes. COMPARISON: 05/24/2020 Findings: There is no acute infarct, intracranial hemorrhage, or mass lesion. There are minimal chron ic white matter changes in the periventricular white matter. Ventricles and subarachnoid spaces are unremarkable. Orbits are unremarkable. Paranasal sinuses and m astoid air cells are clear. Major intracranial flow voids are intact. Sagittal midline structures are intact. No abnormal postcontrast enhancement identified. IMPRESSION: Minimal chronic microvascular ischemic changes, otherwise unremarkable exam. Reviewed, dictated and finalized at location M.
== END 2024-07-08 09:39 | disposition home or self-care (01) ==
LOC: CHSIMG 09:38
PROVIDERS: PCP Internal Medicine
DX: E05.00 Thyrotoxicosis with diffuse goiter without thyrotoxic crisis or storm (principal); R42 Dizziness and giddiness
CPT/HCPCS: 70543; 70553; A9577

== ENCOUNTER 2024-07-20 13:45 | Outpatient (CLI) | payer MEDICARE, BC, SELFPAY ==
--- NOTE | 2024-07-20 13:53 | ECHO_ITS ---
Patient Info Name: Nadiya Carrion Age: 79 years : 1945 Gender: Female Ht: 65 in Wt: 130 lbs BSA: 1.65 m2 HR: 70 bpm BP: 185 / 92 mmHg Heart Rhythm: Sinus Rhythm Technical Quality: Good Exam Date: 07/20/2024 1:58 PM Exam Location: Echo Lab Patient Status: Outpatient Admit Date: 07/20/2024 Staff Ordering Physician: Yulisa Kinsey MD Overcoil Stepper: Deven Osei RDCS Attending Provider: Yulisa Kinsey MD Referring Physician: Tio MILLER; Exam Type: CA echo doppler color flow Study Info Indications - MITRAL REGURGITATION/PALPITATION Complete two-dimensional, color flow and Doppler transthoracic echocardiogram is performed. Summary 1. Complete two-dimensional, color flow and Doppler transthoracic echocardiogram is performed. 2. Left ventricular chamber dimension is normal. 3. Left ventricular systolic function is normal, estimated at 65-70%. 4. The left ventricular diastolic function is grade I diastolic dysfunction. 5. E/e' 14 is mildly elevated. 6. There is mild mitral valve regurgitation. 7. There is trace tricuspid valve regurgitation. 8. No pulmonary hypertension, estimated pulmonary arterial systolic pressure is 34 mmHg. 9. There is trace pulmonic regurgitation. Left Ventricle E/e' 14 is mildly elevated. Left ventricular chamber dimension is normal. Left ventricular systolic function is normal, estimated at 65-70%. The left ventricular diastolic function is grade I diastolic dysfunction. Right Ventricle Right ventricular systolic function is normal and with normal TAPSE 3.0 cm. Right ventricular chamber dimension is normal. Left Atria Left atrial chamber dimension is normal. Right Atria Right atrial chamber dimension is normal. Aortic Valve The aortic valve is trileaflet. There is no aortic valve stenosis. There is no aortic valve regurgitation. Pulmonic Valve There is trace pulmonic regurgitation. Mitral Valve There is no mitral valve stenosis. There is mild mitral valve regurgitation. Tricuspid Valve There is trace tricuspid valve regurgitation. No pulmonary hypertension, estimated pulmonary arterial systolic pressure is 34 mmHg. Pericardium/Pleural There is no pericardial effusion. Inferior Vena Cava Normal inferior vena cava with >50% collapse upon inspiration consistent with normal right atrial pressure, 5 mmHg. Aorta The aortic root size at the sinus of Valsalva is normal. Left Ventricular Outflow Tract Name Value Normal LVOT 2D LVOT Diameter 1.8 cm LVOT Doppler LVOT Peak Velocity 87 cm/s LVOT Peak Gradient 3 mmHg LVOT Mean Gradient 2 mmHg LVOT VTI 19 cm LVOT VTI/AV VTI Ratio 0.7 LVOT Stroke Volume 50 ml Pulmonic Valve Name Value Normal PV Doppler PV Peak Velocity 81 cm/s PV Peak Gradient
--- NOTE | 2024-07-20 13:54 | ECG_ITS ---
Test Date: 2024-07-20 14:07:45 Measurements Intervals [place] Rate: 70 P: 79 ME: 171 QRS: 70 QRSD: 108 T: 67 QT: 416 QTc: 451 Interpretive Statements SINUS RHYTHM POSSIBLE RIGHT ATRIAL ENLARGEMENT [0.25mV P-WAVE] INCOMPLETE RIGHT BUNDLE BRANCH BLOCK [90+ ms QRS DURATION, TERMINAL R IN V1/V2, 40+ ms S IN I/aVL/V4/V5/V6] No previous ECG available for comparison Electronically Signed On 07-21-2024 13:30:11 CDT by Debby Fiore M.D.
--- NOTE | 2024-07-24 11:41 | WPDHOLTEREM ---
Holter/Event Monitor Holter/Event Monitor Date of procedure: 07/20/24 Holter/Event Procedure: 48 Hr Holter Monitor Indications: Dizziness Conclusion: 1. 48 hour holter monitor on 07/20/24. 2. Underlying rhythm is sinus rhythm. HR range 56-120 bpm; average HR 77 bpm. 3. There are 9 premature supraventricular complexes and 5 supraventricular couplets. No supraventricular tachycardia. 4. There are 462 premature ventricular complexes. No ventricular tachycardia. 5. No sinoatrial or atrioventricular blocks. No significant pauses greater than 2 seconds. 6. No symptoms available for correlation.
== END 2024-07-20 13:46 | disposition home or self-care (01) ==
LOC: CHSIMG 13:48
PROVIDERS: PCP Internal Medicine; Visit Provider Internal Medicine
DX: I34.0 Nonrheumatic mitral (valve) insufficiency (principal); R00.2 Palpitations; I45.19 Other right bundle-branch block; I50.30 Unspecified diastolic (congestive) heart failure
CPT/HCPCS: 93005; 93225; 93226; 93306

== ENCOUNTER 2024-09-19 09:03 | Outpatient (CLI) | payer MEDICARE, SELFPAY ==
[2024-09-19 11:23] LABS: Free T3 1.63 pg/mL (2.18-3.98); Free T4 Free Thyroxine 0.56 ng/dL (0.76-1.46); Thyroid Stimulating Hormone 74.15 uIU/mL (0.36-3.74)
== END 2024-09-19 09:04 | disposition home or self-care (01) ==
LOC: CHSLAB 09:05
PROVIDERS: PCP Internal Medicine; Visit Provider Internal Medicine
DX: E89.0 Postprocedural hypothyroidism (principal)
CPT/HCPCS: 36415; 84439; 84443; 84481

== ENCOUNTER 2024-11-08 09:43 | Outpatient (CLI) | payer MEDICARE, SELFPAY ==
--- OUTSIDE RECORDS SUMMARY | 2024-11-08 10:37 | XMS_ITS | Referral Summary ---
Author Organization [facility] Address [address] [place] [address] Care Team Providers Care Cosmetology Instructor Name Role Phone Yulisa Kinsey MD Primary Care Provider Encounters Date Type Department Care Team Description 10/12/2024 Telephone [facility] Ophthalmology [address] [place] [address] [address] Aldo Laurent MD 10/12/2024 11:30 AM CLIENT SUPPORT PROFESSIONAL Office Visit [facility] Ophthalmology [facility] Outpatient [address] [address] Aldo Laurent MD Thyroid eye disease (Primary Dx) from Last 3 Months Allergies No known active allergies Medications ketorolac (ACULAR) 0.5 % ophthalmic solution 03/27/2018 Active TOPROL XL 25 mg 24 hr tablet 03/26/2018 Active prednisoLONE acetate (PRED FORTE) 1 % ophthalmic suspension 03/27/2018 Active vit C,E-Np-pxzfq-lut ein-zeaxan (PRESERVISION AREDS 2) 706-750-77-1 tr-ffcy-gf-mg capsule Active Adthyza 65 mg tablet TAKE 1 TABLET (65 MG) BY ORAL ROUTE ONCE DAILY 05/24/2024 Active Active Problems Problem Noted Date Diagnosed Date Graves disease 10/30/2015 Assessment & Plan (06/27/2019 4:46 PM CDT): No change in ophthalmopathy or goiter. Last seen by Dr. Laurent 2017, stable eye disease, return PRN. Assessment & Plan (05/17/2018 9:41 AM CDT): No change in ophthalmopathy or goiter. Hyperthyroidism 10/30/2015 Assessment & Plan (06/27/2019 4:53 PM CDT): s/p ARTIS-ablation in 06/2016. Since ARTIS she has be alternating between hyperthyroid and hypothyroid requiring alternating between MMI and levothroxine. Currently is clinically euthyroid and last TFTs wnl at last visit. However, labs from 07/2018 with mild hypothyroidism. She currently reports symptoms c/w hypothyroidism. Bloodwork completed last at [facility], but we do not have results available. Will try to track down results. Assessment & Plan (05/17/2018 5:56 PM CDT): s/p ARTIS-ablation in 06/2016. Since ARTIS she has be alternating between hyperthyroid and hypothyroid requiring alternating between MMI and levothroxine. Currently is clinically euthyroid and recent TFTs last week were WNL. She might be in remission from Graves. Will repeat TFTs in 3 months. Social History Tobacco Use Types Packs/Day Years Used Date Smoking Tobacco: Never Comments Unknown Sex and Gender Information Value Date Recorded Sex Assigned at Not on file Legal Sex Female 2:38 AM CLIENT SUPPORT PROFESSIONAL Gender Identity Not on file Sexual Orientation Not on file Last Filed Vital Signs Vital Sign Reading Time Taken Comments Blood Pressure 166/80 06/27/2019 3:27 PM CDT Pulse 86 06/27/2019 3:27 PM CDT Temperature 36.6 ??C (97.9 ??F) 05/17/2018 4:19 PM CD T Respiratory Rate - - Oxygen Saturation - - Inhaled Oxygen Concentration - - Weight 67.6 kg (149 lb) 06/27/2019 3:27 PM CDT Height 165.1 cm (5' 5 ) 06/27/2019 3:27 PM CDT Body Mass Index 24.79 06/27/2019 3:27 PM CDT Plan of Treatment Not on file Insurance MEDICARE BLUE CROSS MEDICARE SUPPLEMENT MEDICARE [facility] Care Teams Cosmetology Instructor Relationship Specialty Start Date End Date Yulisa Kinsey MD [address] [place] [address] PCP - General Internal Medicine 06/29/24
--- OUTSIDE RECORDS SUMMARY | 2024-11-08 10:37 | XMS_ITS | Encounter Summary ---
Author Organization [facility] Address [address] [place] [address] Phone Care Team Providers Care Waste Machine Offbearer Name Role Phone Yandel Mai MD Primary Care Provider [phone] Yulisa Kinsey MD Primary Care Provider [phone] Encounter Details Date Type Department Care Team (Latest Contact Info) Description 09/20/2019 Orders Only [facility] EML Scanning, Provider Social History Tobacco Use Types Packs/Day Years Used Date Smoking Tobacco: Never Comments Unknown Sex and Gender Information Value Date Recorded Sex Assigned at Not on file Legal Sex Female 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 Gender Identity Not on file Sexual Orientation Not on file documented as of this encounter Plan of Treatment Not on file documented as of this encounter Procedures Procedure Name Priority Date/Time Associated Diagnosis Comments SCAN - LABS 09/20/2019 documented in this encounter Results * SCAN - LABS (09/20/2019) us Provider Scanning Edited Result - Final documented in this encounter Visit Diagnoses Not on filedocumented in this encounter Care Teams Waste Machine Offbearer Relationship Specialty Start Date End Date Yandel Mai MD [address] [place] [id number] PCP - General 02/04/17 06/28/24 Yulisa Kinsey MD [address] [id number] PCP - General Internal Medicine 06/29/24 documented as of this encounter
--- OUTSIDE RECORDS SUMMARY | 2024-11-08 10:37 | XMS_ITS | Referral Summary ---
Author Organization [facility] Address [address] [place] [address] Care Team Providers Care Feather Renovator Name Role Phone Unavailable Primary Care Provider Unavailabl e Source Comments [facility],non-owned Affiliates and Associated Physician Practices is amultiple site organization consisting of ambulatory clinics and hospital sitesin [place], [place], [place] and [place]. This disclosure is being madepursuant to the Care Everywhere program and may not contain all information available regarding this patient. Last updated 18.[facility] [employer] Social History Tobacco Use Types Packs/Day Years Used Date Smoking Tobacco: Never Assessed Sex and Gender Information Value Date Recorded Sex Assigned at Not on file Gender Identity Not on file Sexual Orientation Not on file Plan of Treatment Not on file
--- OUTSIDE RECORDS SUMMARY | 2024-11-08 10:37 | XMS_ITS | Clinical Summary ---
Author Organization [facility] Address [address] [place] [address] Care Team Providers Care Director Search Name Role Phone Unavailable Primary Care Provider Unavailabl e Social History Tobacco Use Types Packs/Day Years Used Date Smoking Tobacco: Never Assessed Comments Unknown Sex and Gender Information Value Date Recorded Sex Assigned at Not on file Legal Sex Female 5:20 PM CDT Gender Identity Not on file Sexual Orientation Not on file Plan of Treatment Health Maintenance Due Date Last Done Comments Hepatitis C 1963 DTaP, Tdap and Td Vaccines ( 1 - Tdap) 1965 Zoster Vaccines (1 of 2) 1996 Dexa Scan (General) 2011 Pneumococcal Vaccine: 65+ Ye ars (1 of 1 - PCV) 2011 RSV Immunization or 60+ Years (1 - 1-dose 75+ series) 2021 COVID-19 Vaccine (2023-2 5 season) 2024 Influenza Adult (#1) 2024 Meningococcal B Vaccine Aged Out No l onger eligible based on patient's age to complete this topic Meningococcal Vaccine Aged Out No surendra diane eligible based on patient's age to complete this topic RSV Immunizations Under 20 Months Aged Out No longer eligible based on patient's age to complete this topic
--- OUTSIDE RECORDS SUMMARY | 2024-11-08 10:37 | XMS_ITS | Clinical Summary ---
Author Organization [facility] Address [address] [place] [address] Care Team Providers Care Material Handling Equipment Stevedore Name Role Phone Yulisa Kinsey MD Primary Care Provider Allergies No known active allergies Medications ketorolac (ACULAR) 0.5 % ophthalmic solution 03/27/2018 Active TOPROL XL 25 mg 24 hr tablet 03/26/2018 Active prednisoLONE acetate (PRED FORTE) 1 % ophthalmic suspension 03/27/2018 Active vit C,V-Ls-yxaby-lut ein-zeaxan (PRESERVISION AREDS 2) 883-563-33-1 vc-jzbp-ct-mg capsule Active Adthyza 65 mg tablet TAKE 1 TABLET (65 MG) BY ORAL ROUTE ONCE DAILY 05/24/2024 Active Active Problems Problem Noted Date Diagnosed Date Graves disease 10/30/2015 Assessment & Plan (06/27/2019 4:46 PM CDT): No change in ophthalmopathy or goiter. Last seen by Dr. Laurent 2016, stable eye disease, return PRN. Assessment & [...] symptoms c/w hypothyroidism. Bloodwork completed last at [facility], but we do not have results available. [...] Graves. Will repeat TFTs in 3 months. Encounters Date Type Department Care Team Description 10/12/2024 11:30 AM PROBATE PARALEGAL Office Visit [facility] [address] [place] [phone] Aldo Laurent MD Thyroid eye disease (Primary Dx) 10/12/2024 Telephone [facility] [address] [place] [phone] Aldo Laurent MD from Last 3 Months Surgical History Surgery Date Site/Laterality Comments CATARACT EXTRACTION Bilateral Medical History Medical History Date Comments Graves disease Hyperthyroidism Social History Tobacco Use Types Packs/Day Years Used Date Smoking Tobacco: Never Comments Unknown Sex and Gender Information Value Date Recorded Sex Assigned at Not on file Legal Sex Female 2:38 AM PROBATE PARALEGAL Gender Identity Not on file Sexual Orientation Not on file Obstetrics History Last Filed Vital Signs Vital Sign Reading [...] 06/27/2019 3:27 PM CDT Plan of Treatment Health Maintenance Due Date Last Done Comments Depression Screening 1945 Fall Risk Assessment 1945 Hepatitis C Screening 1945 Osteoporosis Screening-Bone Density Scan 1945 Hepatitis B Screening 1964 Zoster Vaccine (1 of 2) 1996 Pneumococcal vaccine 65+ (1 of 1 - PCV) 2011 Well Visit 65+ 2011 DTaP/Tdap/Td Vaccine (1 - Tdap) 10/18/2017 8 Influenza Vaccine (#1) 2024 Insurance MEDICARE [facility] Address: [facility] [address] [place] [address] [facility] MEDICARE SUPPLEMENT MEDICARE [facility] Care Teams Material Handling Equipment Stevedore Relationship Specialty Start Date End Date Yulisa Kinsey MD [address] [place] [address] PCP - General Internal Medicine 06/29/24
--- OUTSIDE RECORDS SUMMARY | 2024-11-08 10:37 | XMS_ITS | Clinical Summary ---
Author Organization [facility] Address [address] [place] [address] Care Team Providers Care Product Design Specialist Name Role Phone Unavailable Primary Care Provider Unavailabl e Source Comments [facility],non-owned Affiliates and Associated Physician Practices is amultiple site organization consisting of ambulatory clinics and hospital sitesin [place], [place], [place] and [place]. This disclosure is being madepursuant to the Care Everywhere program and may not contain all information available regarding this patient. Last updated 18.[facility] Social History Tobacco Use Types Packs/Day Years Used Date Smoking Tobacco: Never Assessed Sex and Gender Information Value Date Recorded Sex Assigned at Not on file Gender Identity Not on file Sexual Orientation Not on file Plan of Treatment Health Maintenance Due Date Last Done Comments BONE DENSITY TESTING 1945 HEPATITIS C SCREENING 04/17/1964 DTAP/TDAP/TD VACCINES (1 - Tdap) 1965 PNEUMOCOCCAL VACCINE 50+ (1 of 1 - PCV) 1996 ZOSTER VACCINE (1 of 2) 1996 Respiratory Syncytial Virus (RSV) Vaccine Pt: or over 60 yrs (1 - 1-dose 75+ series) 2021 COVID-19 VACCINE ( - 2023-2 5 season) 2024 INFLUENZA VACCINE (#1) 2024 DEPRESSION SCREENING 10/04/2024 HEPATITIS B VACCINE Aged Out No longe r eligible based on patient's age to complete this topic HIB VACCINE Aged Out No longer eligi ble based on patient's age to complete this topic HPV VACCINE Aged Out No longer eligi ble based on patient's age to complete this topic MENINGOCOCCAL (Group B) VACCINE Aged Out No longer eligible based on patient's age to complete this topic MENINGOCOCCAL VACCINE Aged Out No surendra diane eligible based on patient's age to complete this topic
--- OUTSIDE RECORDS SUMMARY | 2024-11-08 10:37 | XMS_ITS | Patient Health Summary ---
Author Organization [facility] Address [address] [place] [address] Care Team Providers Care Front Desk Officer Name Role Phone Unavailable Primary Care Provider Unavailabl e Note from [facility],non-owned Affiliates and Associated Physician Practices is amultiple site organization consisting of ambulatory clinics and hospital sitesin [place], [place], [place] and [place]. This disclosure is being madepursuant to the Care Everywhere program and may not contain all information available regarding this patient. Last updated 18.[facility] Social History Tobacco Use Types Packs/Day Years Used Date Smoking Tobacco: Never Assessed Sex and Gender Information Value Date Recorded Sex Assigned at Not on file Gender Identity Not on file Sexual Orientation Not on file
[2024-11-08 10:57] LABS: Free T3 5.16 pg/mL (2.18-3.98); Free T4 Free Thyroxine 0.85 ng/dL (0.76-1.46); Thyroid Stimulating Hormone 1.61 uIU/mL (0.36-3.74)
== END 2024-11-08 09:44 | disposition home or self-care (01) ==
PROVIDERS: PCP Internal Medicine; Visit Provider Internal Medicine
DX: E89.0 Postprocedural hypothyroidism (principal)
CPT/HCPCS: 36415; 84439; 84443; 84481

== ENCOUNTER 2024-11-27 09:59 | Outpatient (CLI) | payer MEDICARE, SELFPAY ==
[2024-11-27 10:34] LABS: Anion Gap 10 mmol/L (4-12); Blood Urea Nitrogen 23 mg/dL (7-18); Calcium 8.9 mg/dL (8.5-10.1); Carbon Dioxide 28 mmol/L (21-32); Chloride 106 mmol/L (98-108); Estimated Glomerular Filt Rate 52; Glucose 97 mg/dL (70-99); Osmolality Calculated 301 mOsm/kg (285-295); Potassium 4.3 mmol/L (3.5-5.1); Sodium 144 mmol/L (136-145)
--- OUTSIDE RECORDS SUMMARY | 2024-11-27 11:10 | XMS_ITS | Clinical Summary ---
Author Organization [facility] Address [address] [place] [address] Care Team Providers Care Needle Leader Name Role Phone Unavailable Primary Care Provider [...]
--- OUTSIDE RECORDS SUMMARY | 2024-11-27 11:10 | XMS_ITS | Referral Summary ---
Author Organization [facility] Address [address] [place] [address] Care Team Providers Care Powertrain Design Engineer Name Role Phone Yulisa Kinsey MD Primary Care Provider [phone] Encounters Date Type Department Care Team Description 10/12/2024 Telephone [facility] Ophthalmology [address] [place] [address] [address] Aldo Laurent MD 10/12/2024 11:30 AM CORN MILLER Office Visit [facility] Ophthalmology [facility] Outpatient [address] [address] Aldo Laurent MD Thyroid eye disease (Primary Dx) from Last 3 Months Allergies No known active allergies Medications ketorolac (ACULAR) 0.5 % ophthalmic solution 03/27/2018 Active TOPROL XL 25 mg 24 hr tablet 03/26/2018 Active prednisoLONE acetate (PRED FORTE) 1 % ophthalmic suspension 03/27/2018 Active vit C,R-Xf-itaxo-lut ein-zeaxan (PRESERVISION AREDS 2) 827-367-93-1 um-ndup-zn-mg capsule Active Adthyza 65 mg tablet TAKE [...] symptoms c/w hypothyroidism. Bloodwork completed last at [facility], but we do not have [...] on file Legal Sex Female 2:38 AM CORN MILLER Gender Identity Not on file Sexual Orientation Not on file Last Filed Vital Signs Vital Sign Reading Time Taken Comments Blood Pressure 166/80 06/27/2019 3:27 PM CDT Pulse 86 06/27/2019 3:27 PM CDT Temperature 36.6 C (97.9 F) 05/17/2018 4:19 PM CDT Respiratory Rate - - Oxygen Saturation - - Inhaled Oxygen Concentration - - Weight 67.6 kg (149 lb) 06/27/2019 3:27 PM CDT Height 165.1 cm (5' 5 ) 06/27/2019 3:27 PM CDT Body Mass Index 24.79 06/27/2019 3:27 PM CDT Plan of Treatment Not on file Insurance MEDICARE BLUE CROSS MEDICARE SUPPLEMENT MEDICARE [facility] Care Teams Powertrain Design Engineer Relationship Specialty Start Date End Date Yulisa Kinsey MD [address] [place] [address] PCP - General Internal Medicine 06/29/24
--- OUTSIDE RECORDS SUMMARY | 2024-11-27 11:10 | XMS_ITS | Referral Summary ---
Author Organization [facility] Address [address] [place] [address] Care Team Providers Care Welding Machine Operator Gas Name Role Phone Unavailable Primary Care Provider Unavailabl e Source Comments [facility],non-owned Affiliates and Associated Physician Practices is amultiple site organization consisting of ambulatory clinics and hospital sitesin [place], [place], [place] and [place]. This disclosure is being madepursuant to the Care Everywhere program and may not contain all information available regarding this patient. Last updated 18.[facility] [employer] Social History Tobacco Use Types Packs/Day Years Used Date Smoking Tobacco: Never Assessed Sex and Gender Information Value Date Recorded Sex Assigned at Not on file Gender Identity Not on file Sexual Orientation Not on file Plan of Treatment Not on file
--- OUTSIDE RECORDS SUMMARY | 2024-11-27 11:10 | XMS_ITS | Encounter Summary ---
Author Organization [facility] Address [address] [place] [address] Phone Care Team Providers Care Acute Care Nurse Practitioner Name Role Phone Yandel Mai MD Primary Care Provider [phone] Yulisa Kinsey MD Primary Care Provider Encounter Details Date Type Department Care Team (Latest Contact Info) Description 09/20/2019 Orders Only [facility] EML Scanning, Provider Social History Tobacco Use Types Packs/Day Years Used Date Smoking Tobacco: Never Comments Unknown Sex and Gender Information Value Date Recorded Sex Assigned at Not on file 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
--- OUTSIDE RECORDS SUMMARY | 2024-11-27 11:10 | XMS_ITS | Patient Health Summary ---
Author Organization [facility] Address [address] [facility] [place] [address] Care Team Providers Care Clothes Wringer Name Role Phone Unavailable Primary Care Provider Unavailabl e Note from [facility],non-owned Affiliates and Associated Physician Practices is amultiple site organization consisting of ambulatory clinics and hospital sitesin [place], [place], [place] and [place]. This disclosure is being madepursuant to the Care Everywhere program and may not contain all information available regarding this patient. Last updated 18.[facility] Social History Tobacco Use Types Packs/Day Years Used Date Smoking Tobacco: Never Assessed Sex and Gender Information Value Date Recorded Sex Assigned at Not on file Gender Identity Not on file Sexual Orientation Not on file
--- OUTSIDE RECORDS SUMMARY | 2024-11-27 11:10 | XMS_ITS | Clinical Summary ---
Author Organization [facility] Address [address] [place] [address] Care Team Providers Care Sexual Abuse Counsellor Name Role Phone Unavailable Primary Care Provider Unavailabl e Source Comments [facility],non-owned Affiliates and Associated Physician Practices is amultiple site organization consisting of ambulatory clinics and hospital sitesin [place], [place], [place] and [place]. This disclosure is being madepursuant to the Care Everywhere program and may not contain all information available regarding this patient. Last updated 18.[facility] Social History Tobacco Use Types Packs/Day Years [...]
--- OUTSIDE RECORDS SUMMARY | 2024-11-27 11:10 | XMS_ITS | Clinical Summary ---
Author Organization [facility] Address [address] [place] [address] Care Team Providers Care Principal Data Architect Name Role Phone Yulisa Kinsey MD Primary Care Provider Allergies No known active allergies Medications ketorolac (ACULAR) 0.5 % ophthalmic solution 03/27/2018 Active TOPROL XL 25 mg 24 hr tablet 03/26/2018 Active prednisoLONE acetate (PRED FORTE) 1 % ophthalmic suspension 03/27/2018 Active vit C,M-Jv-xvyzw-lut ein-zeaxan (PRESERVISION AREDS 2) 426-361-68-1 pw-tdpf-pd-mg capsule Active Adthyza 65 mg tablet TAKE [...] symptoms c/w hypothyroidism. Bloodwork completed last at [facility], but we do not have results [...] Department Care Team Description 10/12/2024 11:30 AM MANAGER POLICY Office Visit [facility] [address] [place] [phone] Aldo Laurent MD Thyroid eye disease (Primary Dx) 10/12/2024 Telephone [facility] [address] [place] [phone] Aldo Laurent MD from Last 3 Months Surgical History Surgery Date Site/Laterality Comments CATARACT EXTRACTION Bilateral Medical History Medical History Date Comments Graves disease Hyperthyroidism Social History Tobacco Use Types Packs/Day Years Used Date Smoking Tobacco: Never Comments Unknown Sex and Gender Information Value Date Recorded Sex Assigned at Not on file Legal Sex Female 2:38 AM MANAGER POLICY Gender Identity Not on file Sexual Orientation [...] Density Scan 1946 Hepatitis B Screening 1964 Pneumococcal vaccine 65+ (1 of 1 - PCV) 1996 Zoster Vaccine (1 of 2) 1996 Well Visit 65+ 2011 DTaP/Tdap/Td Vaccine (1 - Tdap) 10/18/2017 8 Influenza Vaccine (#1) 2024 Insurance MEDICARE [facility] Address: [facility] [address] [place] [address] [facility] MEDICARE SUPPLEMENT MEDICARE [facility] Care Teams Principal Data Architect Relationship Specialty Start Date End Date Yulisa Kinsey MD [address] [place] [address] PCP - General Internal Medicine 06/29/24
== END 2024-11-27 10:00 | disposition home or self-care (01) ==
LOC: CHSLAB 10:01
PROVIDERS: PCP Internal Medicine; Visit Provider Internal Medicine
DX: E86.0 Dehydration (principal)
CPT/HCPCS: 36415; 80048

== ENCOUNTER 2025-01-17 10:22 | Emergency (ER) | payer MEDICARE, SELFPAY ==
--- NOTE | ~2025-01-17 | CT_ITS ---
EXAMINATION: CTA BRAIN/CAROTID DATE: 01/17/2025 13:20 INDICATION: Severe headache TECHNIQUE: Computed tomographic angiography (CTA) of the head and neck was performed with 100 mL Omni paque-350 intravenous contrast. Multiplanar reconstructions and maximum intensity projection 3D-recon structions of the carotid arteries and of the intracranial arteries were created by the technologist on a separate workstation. Precontrast CT of the head was also obtained. Automated exposure control and iterative reconstruction technique were employed.The dose-length product was 1381.86 mGy-cm. COMPARISON: Brain MR dated 07/08/2024 FINDINGS: Carotid arteries: Aortic arch and the great vessels arising from the arch are normal in caliber with no hematoma signif icant stenosis or dissection. No evident stenosis along the extracranial bilateral vertebral arteries . There is no evident atherosclerotic plaque with 0% stenosis of the right carotid bulb relative to n ormal distal artery lumen diameter (NASCET criteria). There is a small amount of atherosclerotic plaq ue at the location of the left common carotid artery with no plaque and 0% stenosis of the left carot id bulb relative to normal distal artery lumen diameter. Mild to moderate pleuroparenchymal scarring posteriorly at the bilateral apices of the lungs. Cervical soft tissues are unremarkable. Moderate ce rvical spondylosis. Head: No acute intracranial hemorrhage, acute infarction or abnormal extra axial fluid collection. Ventricl es are normal and symmetric. No mass/mass effect. No abnormally enhancing brain lesions. Changes of b ilateral intraocular lens replacement. The orbits, paranasal sinuses and mastoid air cells are uzair l. Intracranial arteries The left vertebral artery is mildly dominant. Mild less than 50% stenosis at the left vertebral arter y. Additional atherosclerotic plaque with no hematoma significant stenosis at the bilateral carotid s iphons. There is no hemodynamically significant stenosis in the vertebral, basilar and internal carot id arteries. Vertebral arteries are codominant. There are no aneurysms identified. Both A1 and P1 se gments are patent. There are also patent bilateral posterior communicating arteries which are similar diameter to the bilateral P1 segments. Cerebral arterial arborization appears symmetric. IMPRESSION: 1. 0% stenosis of the right and left carotid bulbs relative to normal distal artery lumen diameter (N ASCET criteria). 2. No evident cerebral arterial hemodynamically significant stenosis, aneurysm or thrombosis. 3. Normal brain with no acute intracranial process or abnormally enhancing brain lesions. Reviewed, dictated and finalized at location A. IMPRESSION: 1. 0% stenosis of the right and left carotid bulbs relative to normal distal ar rey lumen diameter (NASCET criteria). 2. No evident cerebral arterial hemodynamically significant stenosis, aneurysm or thrombosis. 3. Normal brain with no acute intracranial process or abnormally enhancing brai n lesions.
--- NOTE | ~2025-01-17 | XR_ITS ---
Clinical Indication: Chest pain PA and lateral views of the chest: Comparison: 08/08/2020 Findings: The lungs are clear, without evidence of focal consolidation or pleural effusion. COPD iesha lashay present. Cardiomediastinal silhouette is within normal limits. Bones and soft tissues are unremar kable. Impression: No acute abnormality. COPD. Reviewed, dictated and finalized at location . Impression: No acute abnormality. COPD.
--- NOTE | 2025-01-17 10:25 | ECG_ITS ---
Test Date: 2025-01-17 10:31:57 Measurements Intervals [place] Rate: 64 P: 78 NM: 158 QRS: 33 QRSD: 102 T: 74 QT: 430 QTc: 446 Interpretive Statements SINUS RHYTHM POSSIBLE LEFT ATRIAL ENLARGEMENT INCOMPLETE RIGHT BUNDLE BRANCH BLOCK BASELINE ARTIFACT- I, II, III, AVR, AVL, AVF, V1-V6 BORDERLINE ECG Compared to ECG 07/20/2024 14:07:45 NO SIGNIFICANT CHANGE Electronically Signed On 01-17-2025 10:35:42 CDT by Chicho Velasco D.O.
[2025-01-17 10:26] VITALS: BP 190/78; PULSE 65; RESP 16; TEMP 36.2; O2SAT 100
[2025-01-17 10:52] LABS: Basophils Absolute Auto 0.1 K/mm3 (0.0-0.1); Basophils Percent Auto 1.1 % (0.2-1.2); Eosinophils Absolute Auto 0.2 K/mm3 (0-0.3); Eosinophils Percent Auto 3.5 % (0-4.4); Hematocrit 43.1 % (37.0-47.0); Hemoglobin 13.8 g/dL (12.0-15.0); Lymphocytes Absolute Auto 1.34 K/mm3 (0.9-3.2); Lymphocytes Percent Auto 29.1 % (18.3-44.2); Mean Corpuscular Hemoglobin 29.6 pg (26-34); Mean Corpuscular Volume 92.3 fl (80-100); Mean Platelet Volume 9.8 fl (7.4-10.4); Monocytes Absolute Auto 0.4 K/mm3 (0.1-0.6); Monocytes Percent Auto 8.5 % (2.6-8.5); Neutrophils Absolute Auto 2.7 K/mm3 (1.3-6.7); Neutrophils Percent Auto 57.8 % (45.5-73.1); Platelet Count Result 247 k/mm3 (150-375); Red Blood Count 4.67 M/mm3 (4.2-5.4); Red Cell Distribution Width 12.5 % (11.5-14.5); White Blood Count 4.6 K/mm3 (4.5-10.0)
[2025-01-17 11:04] LABS: INR 0.9; Prothrombin Time 12.3 Seconds (11.1-14.7)
[2025-01-17 11:05] LABS: Partial Thromboplastin Time 26.4 Seconds (22.3-36.8)
[2025-01-17 11:08] LABS: Alanine Aminotransferase 16 U/L (6-35); Albumin Level 4.7 g/dL (3.5-5.1); Alkaline Phosphatase 86 U/L (38-126); Anion Gap 9 mmol/L (4-12); Aspartate Amino Transferase 20 U/L (14-36); Bilirubin,Total 0.7 mg/dL (0.2-1.3); Blood Urea Nitrogen 22 mg/dL (7-17); Calcium 9.8 mg/dL (8.4-10.2); Carbon Dioxide 27 mmol/L (22-30); Chloride 104 mmol/L (98-107); Estimated CRCL calculation 35 ml/min; Estimated Glomerular Filt Rate 50; Glucose 103 mg/dL (65-110); Lipase 55 U/L (23-300); Potassium 4.4 mmol/L (3.4-5.0); Sodium 140 mmol/L (137-145)
[2025-01-17 11:19] LABS: Troponin I < 0.012 ng/mL (0.000-0.034)
--- OUTSIDE RECORDS SUMMARY | 2025-01-17 11:26 | XMS_ITS | Clinical Summary ---
Author Organization [facility] Address [address] [place] [id number] Care Team Providers Care Parliamentary Librarian Name Role Phone Unavailable Primary Care Provider [...] 1996 Dexa Scan (General) 2011 Pneumococcal Vaccine: 50+ Ye ars (1 of 1 - PCV) 2011 RSV Immunization or 60+ Years (1 - 1-dose 75+ series) 2021 COVID-19 Vaccine ( - 2023-2 5 season) 2024 Meningococcal B Vaccine Aged Out No l onger eligible based on patient's age to complete this topic Meningococcal Vaccine Aged Out No surendra diane eligible based on patient's age to complete this topic RSV Immunizations Under 20 Months Aged Out No longer eligible based on patient's age to complete this topic
--- OUTSIDE RECORDS SUMMARY | 2025-01-17 11:26 | XMS_ITS | Referral Summary ---
Author Organization [facility] Address [address] [place] [address] Care Team Providers Care Pharmacy Retail Support Specialist Name Role Phone Yulisa Kinsey MD Primary Care Provider [phone] Allergies No known active allergies Medications ketorolac (ACULAR) 0.5 % ophthalmic solution 03/27/2018 Active TOPROL XL 25 mg 24 hr tablet 03/26/2018 Active prednisoLONE acetate (PRED FORTE) 1 % ophthalmic suspension 03/27/2018 Active vit C,J-Px-itzcy-lut ein-zeaxan (PRESERVISION AREDS 2) 582-194-44-1 ru-goxv-ss-mg capsule Active Adthyza 65 mg tablet TAKE [...] symptoms c/w hypothyroidism. 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
--- OUTSIDE RECORDS SUMMARY | 2025-01-17 11:26 | XMS_ITS | Clinical Summary ---
Author Organization [facility] Address [address] [place] [address] Care Team Providers Care Nursing Director Name Role Phone Unavailable Primary Care Provider Unavailabl e Source Comments [facility],non-owned Affiliates and Associated Physician Practices is amultiple site organization consisting of ambulatory clinics and hospital sitesin [place], [place], [place] and [place]. This disclosure is being madepursuant to the Care Everywhere program and may not contain all information available regarding this patient. 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 Gender Identity Not on file Sexual Orientation [...] VACCINE ( - 2023-2 5 season) 2024 DEPRESSION SCREENING 10/04/2024 INFLUENZA VACCINE (Season Ended) 2025 HEPATITIS B VACCINE Aged Out No longe r eligible based on patient's age to complete this topic HIB VACCINE Aged Out No longer eligi ble based on patient's age to complete this topic HPV VACCINE Aged Out No longer eligi ble based on patient's age to complete this topic MENINGOCOCCAL (Group B) VACC INE SHARED DECISION-MAKING Aged Out No longer eligibl e based on patient's age to complete this topic MENINGOCOCCAL GROUPS A/C/Y/W VACCINE Aged Out No longer eligible b ased on patient's age to complete this topic
--- OUTSIDE RECORDS SUMMARY | 2025-01-17 11:26 | XMS_ITS | Clinical Summary ---
Author Organization [facility] Address [address] [place] [address] Care Team Providers Care Block Press Operator Name Role Phone Yulisa Kinsey MD Primary Care Provider Allergies No known active allergies Medications ketorolac (ACULAR) 0.5 % ophthalmic solution 03/27/2018 Active TOPROL XL 25 mg 24 hr tablet 03/26/2018 Active prednisoLONE acetate (PRED FORTE) 1 % ophthalmic suspension 03/27/2018 Active vit C,H-Lc-pmwvp-lut ein-zeaxan (PRESERVISION AREDS 2) 750-891-90-1 pm-odgx-pc-mg capsule Active Adthyza 65 mg tablet TAKE [...] symptoms c/w hypothyroidism. Bloodwork completed last at [facility], but we do not have [...] Graves. Will repeat TFTs in 3 months. 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
--- OUTSIDE RECORDS SUMMARY | 2025-01-17 11:26 | XMS_ITS | Encounter Summary ---
Author Organization [facility] Address [address] [place] [address] Phone Care Team Providers Care Civil Engineering Draftsperson Name Role Phone Yandel Mai MD Primary Care Provider [phone] Yulisa Kinsey MD Primary Care Provider Encounter Details Date Type Department Care Team (Latest Contact Info) Description 09/20/2019 Orders Only [facility] E[facility] Scanning, Provider Social History Tobacco Use Types Packs/Day Years Used Date Smoking Tobacco: Never Comments Unknown Sex and Gender Information Value Date Recorded Sex Assigned at Not on file 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
[2025-01-17 11:30] VITALS: BP 182/79; PULSE 64; RESP 20; O2SAT 100
[2025-01-17] MEDS: METOCLOPRAMIDE HCL INJ 10 MG/2 ML VIAL IV PUSH (12:50)
--- NOTE | 2025-01-17 12:53 | ECG_ITS ---
Test Date: 2025-01-17 12:57:30 Measurements Intervals [place] Rate: 67 P: 82 UT: 161 QRS: 33 QRSD: 104 T: 66 QT: 433 QTc: 460 Interpretive Statements SINUS RHYTHM POSSIBLE LEFT ATRIAL ENLARGEMENT INCOMPLETE RIGHT BUNDLE BRANCH BLOCK BASELINE ARTIFACT- I, II, III, AVR, AVL, AVF, V1-V6 BORDERLINE ECG Compared to ECG 01/17/2025 10:31:57 No significant changes Electronically Signed On 01-17-2025 13:20:18 CDT by Chicho Velasco D.O.
[2025-01-17 13:01] VITALS: BP 186/84; PULSE 65; RESP 16; O2SAT 100
[2025-01-17] MEDS: diphenhydrAMINE HCl INJ 50 MG/ML VIAL 25 MG IV PUSH (13:01)
--- OUTSIDE RECORDS SUMMARY | 2025-01-17 13:12 | XMS_ITS | Clinical Summary ---
Author Organization [facility] Address [address] [place] [address] Care Team Providers Care Ocean Freight Manager Name Role Phone Yulisa Kinsey MD Primary Care Provider [phone] Allergies No known active allergies Medications ketorolac (ACULAR) 0.5 % ophthalmic solution 03/27/2018 Active TOPROL XL 25 mg 24 hr tablet 03/26/2018 Active prednisoLONE acetate (PRED FORTE) 1 % ophthalmic suspension 03/27/2018 Active vit C,P-Iz-rnkpe-lut ein-zeaxan (PRESERVISION AREDS 2) 206-197-10-1 gn-cybh-yp-mg capsule Active Adthyza 65 mg tablet TAKE [...] symptoms c/w hypothyroidism. 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
--- OUTSIDE RECORDS SUMMARY | 2025-01-17 13:12 | XMS_ITS | Referral Summary ---
Author Organization [facility] Address [address] [place] [address] Care Team Providers Care Ocean Forwarder Name Role Phone Yulisa Kinsey MD Primary Care Provider Allergies No known active allergies Medications ketorolac (ACULAR) 0.5 % ophthalmic solution 03/27/2018 Active TOPROL XL 25 mg 24 hr tablet 03/26/2018 Active prednisoLONE acetate (PRED FORTE) 1 % ophthalmic suspension 03/27/2018 Active vit C,D-Xn-knvdj-lut ein-zeaxan (PRESERVISION AREDS 2) 300-010-76-1 cg-rtnn-mj-mg capsule Active Adthyza 65 mg tablet TAKE [...] symptoms c/w hypothyroidism. 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
--- OUTSIDE RECORDS SUMMARY | 2025-01-17 13:12 | XMS_ITS | Clinical Summary ---
Author Organization [facility] Address [address] [place] [address] Care Team Providers Care Fur Farmer Name Role Phone Unavailable Primary Care Provider [...]
--- OUTSIDE RECORDS SUMMARY | 2025-01-17 13:12 | XMS_ITS | Encounter Summary ---
Author Organization [facility] Address [address] [place] [address] Phone Care Team Providers Care Data Analyst Report Writer Name Role Phone Yandel Mai MD Primary Care Provider [phone] Yulisa Kinsey MD Primary Care Provider Encounter Details Date Type Department Care Team (Latest Contact Info) Description 09/20/2019 Orders Only [facility] EML Scanning, Provider Social History Tobacco Use Types Packs/Day Years Used Date Smoking Tobacco: Never Comments Unknown Sex and Gender Information Value Date Recorded Sex Assigned at Not on file 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
--- OUTSIDE RECORDS SUMMARY | 2025-01-17 13:12 | XMS_ITS | Clinical Summary ---
Author Organization [facility] Address [address] [place] [address] Care Team Providers Care Hydro Generation Manager Name Role Phone Unavailable Primary Care Provider Unavailabl e Source Comments [facility],non-owned Affiliates and Associated Physician Practices is amultiple site organization consisting of ambulatory clinics and hospital sitesin [place], [place], [place] and [place]. This disclosure is being madepursuant to the Care Everywhere program and may not contain all information available regarding this patient. 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
--- NOTE | 2025-01-17 13:37 | ECG_ITS ---
Test Date: 2025-01-17 13:40:55 Measurements Intervals [place] Rate: 69 P: 74 SC: 171 QRS: 21 QRSD: 106 T: 52 QT: 426 QTc: 459 Interpretive Statements SINUS RHYTHM POSSIBLE LEFT ATRIAL ENLARGEMENT INCOMPLETE RIGHT BUNDLE BRANCH BLOCK BASELINE ARTIFACT- I, II, AVR, AVL, AVF BORDERLINE ECG Compared to ECG 01/17/2025 12:57:30 No significant changes Electronically Signed On 01-17-2025 14:09:05 CDT by Chicho Velasco D.O.
[2025-01-17 14:04] LABS: Troponin I < 0.012 ng/mL (0.000-0.034)
[2025-01-17 14:54] VITALS: BP 119/78; PULSE 80; RESP 14; O2SAT 98
--- NOTE | 2025-01-17 17:28 | ED_ITS ---
HPI - Chest Pain General Chief Complaint: Chest Pain Stated Complaint: chest pain Time Seen by Provider: 01/17/25 11:51 History of Present Illness HPI narrative: Patient has had some headaches for last 2 days, this happens sometimes with the air pressure, however this morning she noticed a small twinge to her chest, then she took her thyroid medication and then started having chest pain that seemed to feel like it was coming up to her left jaw. She had also noticed that her blood pressure was high. Since arrival here her symptoms have largely resolved. Related Data Allergies Allergy/AdvReac Type Severity Reaction Status Date / Time levothyroxine Allergy Unknown Verified 05/04/21 10:50 levothyroxine sodium (From Allergy Unknown Verified 05/04/21 10:50 Synthroid) thyroid, pork (From [place] Allergy Unknown Verified 05/04/21 10:50 Thyroid) Review of Systems 2 Review of Systems: All systems reviewed & are unremarkable except as noted in HPI and below PMFSH Past Medical History Medical History (Updated 01/17/25 @ 14:42 by Yamile Reich MD) Hypothyroidism Surgical History Surgical History (Updated 05/04/21 @ 09:34 by Zeeshan WigginsMD) Kidney malignancy 2016 dx. Kidney mass excised. No other tx. Sees oncology yearly. Family History Family History Other Cerebrovascular accident Family history of anemia Family history of atrial fibrillation Family history of cardiovascular disease Family history of cataracts Family history of congestive heart failure Family history of coronary artery disease Family history of glaucoma Family history of hearing loss Family history of kidney disease Family history of malignant neoplasm of male breast Family history of osteoporosis Family history of seizure disorder Social History Social History Smoking status: Never smoker Alcohol intake: current Gender identity (if verbalized by the patient): Female Exam 2 Narrative: EXAMINATION OF ORGAN SYSTEMS/BODY AREAS: Constitutional: Vital signs per nursing GENERAL:[No acute distress, non-toxic appearing.] HEAD: Normal with no signs of head trauma. EYES: EOMI, conjunctiva normal ENT: Hearing grossly intact LUNGS: Nonlabored breathing. Clear to auscultation bilaterally HEART: [Regular rate and rhythm], normal radial pulses bilaterally ABD: [Soft], [nontender to palpation] EXT: Normal range of motion SKIN: [No rashes or lesions.] NEURO: [Alert and oriented x 3. No gross focal sensory or strength deficits.] PSYCH: Normal affect Course Vital Signs Vital signs: Vital Signs Temperature 97.2 F L 01/17/25 10:26 Pulse Rate 65 01/17/25 10:26 Respiratory Rate 16 01/17/25 10:26 Blood Pressure 190/78 H 01/17/25 10:26 Pulse Oximetry 100 01/17/25 10:26 Temperature 97.2 F L 01/17/25 10:26 Pulse Rate 80 01/17/25 14:54 Respiratory Rate 14 01/17/25 14:54 Blood Pressure 119/78 01/17/25 14:54 Pulse Oximetry 98 01/17/25 14:54 Oxygen Delivery Room Air 01/17/25 11:10 MDM - Chest Pain MDM Narrative Medical decision making narrative: ED COURSE AND MEDICAL DECISION MAKIN-year-old female presenting with chest pain. EKG done in triage negative for acute ischemic changes. Cardiac workup is initiated. EKG: Performed in triage and interpreted by me. Normal sinus rhythm. Rate 64. Normal axis. WA normal. QRS duration normal. QTc normal. No pathologic Q waves. No ST segment elevation or depression to suggest acute ischemia. No RV strain pattern. HEART score is 2 with no acute ischemic changes on EKG and negative troponin making ACS unlikely. No DVT symptoms or shortness of breath making PE unlikely. Presentation not consistent with dissection or aneurysm without radiation of pain or pulse deficits. CXR negative for mediastinal widening. No abdominal pain or signs of sepsis that would be concerning for esophageal perforation or mediastinitis. No cardiomegaly or JVD to suggest pericardial effusion/tamponade. She states she never gets headaches like this; so I will obtain CTA head/neck; thankfully normal, migraine cocktail administered and on re-evaluation, headache is completely resolved, so has her chest pain, her blood pressure is completely normal now. Repeat ED my independent interpretation shows normal sinus rate 67 WA 161 QRS 104 QTC [address] elevations depressions. On repeat evaluation just prior to discharge, the patient is no acute distress. I had a long discussion with the patient and with shared decision making, she is comfortable with outpatient management. She was given clear return instructions by myself in person as well as on discharge paperwork. Family at bedside.\ Lab Data 01/17/25 10:47 01/17/25 10:47 Labs: Lab Results 01/17/25 01/17/25 Range/Units 10:47 13:31 WBC 4.6 (4.5-10.0) K/mm3 RBC 4.67 (4.2-5.4) M/mm3 Hgb 13.8 (12.0-15.0) g/dL Hct 43.1 (37.0-47.0) % MCV 92.3 (80-100) fl MCH 29.6 (26-34) pg MCHC 32.0 (32-36) g/dl RDW 12.5 (11.5-14.5) % Plt Count 247 (150-375) k/mm3 MPV 9.8 (7.4-10.4) fl Immature Gran % (Auto) 0.0 (0-0.5) % Neut % (Auto) 57.8 (45.5-73.1) % Lymph % (Auto) 29.1 (18.3-44.2) % [place] % (Auto) 8.5 (2.6-8.5) % Eos % (Auto) 3.5 (0-4.4) % Baso % (Auto) 1.1 (0.2-1.2) % Lymph # (Auto) 1.34 (0.9-3.2) K/mm3 [place] # (Auto) 0.4 (0.1-0.6) K/mm3 Eos # (Auto) 0.2 (0-0.3) K/mm3 Baso # (Auto) 0.1 (0.0-0.1) K/mm3 Abs Immat Gran (auto) 0.00 (0.00-0.031) K/mm3 Absolute Neuts (auto) 2.7 (1.3-6.7) K/mm3 Absolute Nucleated RBC 0.000 (0.0-0.012) K/mm3 Nucleated RBC % 0.0 (0.0-0.2) % PT 12.3 (11.1-14.7) Seconds INR 0.9 APTT 26.4 (22.3-36.8) Seconds Sodium 140 (137-145) mmol/L Potassium 4.4 (3.4-5.0) mmol/L Chloride 104 (98-107) mmol/L Carbon Dioxide 27 (22-30) mmol/L Anion Gap 9 (4-12) mmol/L BUN 22 H (7-17) mg/dL Creatinine 1.07 H (0.7-1.0) mg/dL Estim Creat Clear Calc 35 ml/min Estimated GFR 50 L (59 - ) Glucose 103 (65-110) mg/dL Calcium 9.8 (8.4-10.2) mg/dL Total Bilirubin 0.7 (0.2-1.3) mg/dL AST 20 (14-36) U/L ALT 16 (6-35) U/L Alkaline Phosphatase 86 (38-126) U/L Troponin I < 0.012 < 0.012 (0.000-0.034) ng/mL Total Protein 8.0 (6.3-8.2) g/dL Albumin 4.7 (3.5-5.1) g/dL Lipase 55 (23-300) U/L Discharge Plan Discharge Clinical Impression: Chest pain, Headache Patient Disposition: Home Condition: Stable Instructions: Chest Pain (ED), Acute Headache (ED) Additional Instructions: Please follow up with your doctor; you can always return for any further issues. Patient Language: Estonian Prescriptions: No Action meclizine 25 mg tablet 25 mg PO TID PRN (Reason: dizziness) Qty: 30 0RF Follow-up/Referrals: Yulisa Kinsey MD [Primary Care Provider] - 2 Days
== END 2025-01-17 14:56 | disposition home or self-care (01) ==
PROVIDERS: Emergency Medicine; Emergency Provider Emergency Medicine; PCP Internal Medicine
DX: R07.9 Chest pain, unspecified (principal); R51.9 Headache, unspecified; E03.9 Hypothyroidism, unspecified
CPT/HCPCS: 36415; 70496; 70498; 71046; 80053; 83690; 84484; 85025; 85610; 85730; 93005; 96374; 96375; 99284; J1200; J2765; Q9967

== ENCOUNTER 2025-01-30 07:17 | Outpatient (CLI) | payer MEDICARE, SELFPAY ==
--- NOTE | ~2025-01-30 | US_ITS ---
Limited Abdominal Sonogram: Real-time sonographic imaging of the right upper quadrant was performed. Clinical History: Chronic cholecystitis Findings: The liver appears normal with no evidence of mass lesion or bile duct dilatation. Main por katia vein demonstrates normal direction of flow. The gallbladder is well distended, and appears normal with no evidence of gallstone or wall thickening. The common bile duct measures 4 mm. The visualize d pancreas, aorta, and IVC are unremarkable. Impression: No significant abnormality seen. Reviewed, dictated and finalized at location . Impression: No significant abnormality seen.
--- OUTSIDE RECORDS SUMMARY | 2025-01-30 07:23 | XMS_ITS | Referral Summary ---
Author Organization [facility] Address [address] [place] [address] Care Team Providers Care Va Underwriter Name Role Phone Yulisa Kinsey MD Primary Care Provider Allergies No known active allergies Medications ketorolac (ACULAR) 0.5 % ophthalmic solution 03/27/2018 Active TOPROL XL 25 mg 24 hr tablet 03/26/2018 Active prednisoLONE acetate (PRED FORTE) 1 % ophthalmic suspension 03/27/2018 Active vit C,L-Yz-yvqbt-lut ein-zeaxan (PRESERVISION AREDS 2) 555-806-51-1 kt-uwrb-wp-mg capsule Active Adthyza 65 mg tablet TAKE [...] symptoms c/w hypothyroidism. 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
--- OUTSIDE RECORDS SUMMARY | 2025-01-30 07:23 | XMS_ITS | Encounter Summary ---
Author Organization [facility] Address [address] [place] [address] Phone Care Team Providers Care Plumber Maintenance Name Role Phone Yandel Mai MD Primary Care Provider [phone] Yulisa Kinsey MD Primary Care Provider Encounter Details Date Type Department Care Team (Latest Contact Info) Description 09/20/2019 Orders Only [facility] EML Scanning, Provider Social History Tobacco Use Types Packs/Day Years Used Date Smoking Tobacco: Never Comments Unknown Sex and Gender Information Value Date Recorded Sex Assigned at Not on file 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
--- OUTSIDE RECORDS SUMMARY | 2025-01-30 07:23 | XMS_ITS | Clinical Summary ---
Author Organization [facility] Address [address] [place] [address] Care Team Providers Care Insulation Cutter Name Role Phone Unavailable Primary Care Provider Unavailabl e Source Comments [facility],non-owned Affiliates and Associated Physician Practices is amultiple site organization consisting of ambulatory clinics and hospital sitesin [place], [place], [place] and [place]. This disclosure is being madepursuant to the Care Everywhere program and may not contain all information available regarding this patient. 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
--- OUTSIDE RECORDS SUMMARY | 2025-01-30 07:23 | XMS_ITS | Clinical Summary ---
Author Organization [facility] Address [address] [place] [address] Care Team Providers Care Performance Improvement Coordinator Name Role Phone Yulisa Kinsey MD Primary Care Provider Allergies No known active allergies Medications ketorolac (ACULAR) 0.5 % ophthalmic solution 03/27/2018 Active TOPROL XL 25 mg 24 hr tablet 03/26/2018 Active prednisoLONE acetate (PRED FORTE) 1 % ophthalmic suspension 03/27/2018 Active vit C,S-Hv-kifbg-lut ein-zeaxan (PRESERVISION AREDS 2) 827-832-17-1 la-thhp-hi-mg capsule Active Adthyza 65 mg tablet TAKE [...] c/w hypothyroidism. 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
--- OUTSIDE RECORDS SUMMARY | 2025-01-30 07:23 | XMS_ITS | Clinical Summary ---
Author Organization [facility] Address [address] [place] [address] Care Team Providers Care Toolroom Helper Name Role Phone Unavailable Primary Care Provider [...] Td Vaccines ( 1 - Tdap) 1965 Pneumococcal Vaccine: 50+ Ye ars (1 of 1 - PCV) 1996 Zoster Vaccines (1 of 2) 1996 Dexa Scan (General) 2011 RSV Immunization or 60+ Years (1 [...]
== END 2025-01-30 07:18 | disposition home or self-care (01) ==
LOC: CHSIMG 07:19
PROVIDERS: PCP Internal Medicine; Visit Provider Internal Medicine
DX: R06.00 Dyspnea, unspecified (principal)
CPT/HCPCS: 76705

== ENCOUNTER 2025-05-08 09:39 | Outpatient (CLI) | payer MEDICARE, SELFPAY ==
--- OUTSIDE RECORDS SUMMARY | 2025-05-08 10:02 | XMS_ITS | Clinical Summary ---
Author Organization [facility] Address [address] [place] [address] Care Team Providers Care Library Historian Name Role Phone Unavailable Primary Care Provider [...]
--- OUTSIDE RECORDS SUMMARY | 2025-05-08 10:02 | XMS_ITS | Clinical Summary ---
Author Organization [facility] Address [address] [place] [address] Care Team Providers Care Port Captain Name Role Phone Unavailable Primary Care Provider Unavailabl e Source Comments [facility],non-owned Affiliates and Associated Physician Practices is amultiple site organization consisting of ambulatory clinics and hospital sitesin [place] and [place]. This disclosure is being madepursuant to the Care Everywhere program and may not contain all information available regarding this patient. 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
--- OUTSIDE RECORDS SUMMARY | 2025-05-08 10:02 | XMS_ITS | Clinical Summary ---
Author Organization [facility] Address [address] [place] [address] Care Team Providers Care Glass Cut Off Tender Name Role Phone Yulisa Kinsey MD Primary Care Provider Allergies No known active allergies Medications ketorolac (ACULAR) 0.5 % ophthalmic solution 03/27/2018 Active TOPROL XL 25 mg 24 hr tablet 03/26/2018 Active prednisoLONE acetate (PRED FORTE) 1 % ophthalmic suspension 03/27/2018 Active vit C,C-As-bixzg-lut ein-zeaxan (PRESERVISION AREDS 2) 538-950-05-1 tx-rqga-gl-mg capsule Active Adthyza 65 mg tablet TAKE [...] symptoms c/w hypothyroidism. Bloodwork completed last at [facility], but we do not have [...] Encounters Date Type Department Care Team Description 05/03/2025 11:00 AM CDT Office Visit [facility] Ophthalmology [address] [place] [id number] Aldo Laurent MD Thyroid eye disease (Primary Dx) 03/26/2025 Telephone [facility] Ophthalmology [facility] [place] [address] Aldo Laurent MD from Last 3 Months Surgical History Surgery Date Site/Laterality Comments CATARACT EXTRACTION Bilateral Medical History Medical History Date Comments Graves disease Hyperthyroidism Family History Medical History Relation Name Comments Glaucoma Maternal Grandmother Macular degeneration Sister Diabetes Neg Hx Thyroid disease Neg Hx Relation Name Status Comments Maternal Grandmother Sister Social History Tobacco Use Types Packs/Day Years Used Date Smoking Tobacco: Never Passive Smoke Exposure: Never Smokeless Tobacco: Never Tobacco Cessation:Counseling Given: No Comments Unknown Sex and Gender Information Value Date Recorded Sex Assigned at Not on file 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
--- OUTSIDE RECORDS SUMMARY | 2025-05-08 10:02 | XMS_ITS | Referral Summary ---
Author Organization [facility] Address [address] [place] [address] Care Team Providers Care Sheet Pile Hammer Operator Name Role Phone Yulisa Kinsey MD Primary Care Provider [phone] Encounters Date Type Department Care Team Description 05/03/2025 11:00 AM CDT Office Visit [facility] Ophthalmology [address] [facility] [place] [address] Aldo Laurent MD Thyroid eye disease (Primary Dx) 03/26/2025 Telephone [facility] Ophthalmology [facility] [place] [address] Aldo Laurent MD from Last 3 Months Allergies No known active allergies Medications ketorolac (ACULAR) 0.5 % ophthalmic solution 03/27/2018 Active TOPROL XL 25 mg 24 hr tablet 03/26/2018 Active prednisoLONE acetate (PRED FORTE) 1 % ophthalmic suspension 03/27/2018 Active vit C,U-Dq-ewnqs-lut ein-zeaxan (PRESERVISION AREDS 2) 681-735-63-1 uv-sggx-pv-mg capsule Active Adthyza 65 mg tablet TAKE [...] symptoms c/w hypothyroidism. Bloodwork completed last at [facility], but we do not have results available. 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
--- OUTSIDE RECORDS SUMMARY | 2025-05-08 10:02 | XMS_ITS | Encounter Summary ---
Author Organization [facility] Address [address] [place] [address] Phone Care Team Providers Care Flooring Professional Name Role Phone Yandel Mai MD Primary Care Provider [phone] Yulisa Kinsey MD Primary Care Provider Encounter Details Date Type Department Care Team (Latest Contact Info) Description 09/20/2019 Orders Only [facility] EML Scanning, Provider Social History Tobacco Use Types Packs/Day Years Used Date Smoking Tobacco: Never Comments Unknown Sex and Gender Information Value Date Recorded Sex Assigned at Not on file 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
[2025-05-08 10:05] LABS: Hematocrit 40.0 % (35.0-42.0); Hemoglobin 12.8 g/dL (11.7-13.8); Mean Corpuscular HGB Conc 32.0 g/dL (32-36); Mean Corpuscular Hemoglobin 29.4 pg (27.0-31.0); Mean Corpuscular Volume 92.0 fL (78.0-102.0); Platelet Count Result 275 K/mm3 (150-420); Red Blood Count 4.35 M/mm3 (4.20-5.40); White Blood Count 5.4 K/mm3 (4.8-10.8)
[2025-05-08 10:10] LABS: Add Urine Microscopic? YES; Appearance Urine Clear (Clear); Glucose Urine UA Negative (Negative); Leukocyte Esterase Ur 1+ (Negative); Nitrate Urine Negative (Negative); Specific Grav Ur 1.015 (1.010-1.020)
[2025-05-08 10:47] LABS: Alanine Aminotransferase 11 U/L (6-35); Albumin Level 4.3 g/dL (3.5-5.1); Alkaline Phosphatase 66 U/L (38-126); Anion Gap 2 mmol/L (4-12); Aspartate Amino Transferase 20 U/L (14-36); Bilirubin,Total 0.5 mg/dL (0.2-1.3); Blood Urea Nitrogen 24 mg/dL (7-17); Calcium 9.8 mg/dL (8.4-10.2); Carbon Dioxide 27 mmol/L (22-30); Chloride 109 mmol/L (98-107); Estimated Glomerular Filt Rate 50; Glucose 103 mg/dL (65-110); Osmolality Calculated 290 mOsm/kg (285-295); Potassium 4.3 mmol/L (3.4-5.0); Sodium 138 mmol/L (137-145); Total Protein 6.4 g/dL (6.3-8.2)
[2025-05-08 11:03] LABS: Free T4 Free Thyroxine 0.96 ng/dL (0.78-2.19)
[2025-05-08 11:04] LABS: Free T3 6.55 pg/mL (2.18-3.98)
[2025-05-08 11:17] LABS: Thyroid Stimulating Hormone 0.682 uIU/mL (0.465-4.680)
== END 2025-05-08 09:40 | disposition home or self-care (01) ==
LOC: CHSLAB 09:41
PROVIDERS: PCP Internal Medicine; Visit Provider Internal Medicine
DX: N18.1 Chronic kidney disease, stage 1 (principal); E89.0 Postprocedural hypothyroidism
CPT/HCPCS: 36415; 80053; 81001; 84439; 84443; 84481; 85027